=== PATIENT | male | born 1985 | race American Indian/Alaskan Native ===

== ENCOUNTER 2017-10-18 22:14 | Inpatient (IN) | payer OTHER ==
[2017-10-18] MEDS ORDERED: NORMODYNE IV ONE (23:03)
[2017-10-18 23:16] LABS: Basophils % (Auto) 0.5 % (0.0-1.8); Eosinophils # (Auto) 0.2 K/mm3 (0.0-0.4); Eosinophils % (Auto) 2.1 % (0.0-4.3); Hematocrit 46.2 % (35.5-45.6); Hemoglobin 15.7 gm/dl (11.8-15.2); Lymphocytes # (Auto) 1.8 K/mm3 (1.2-5.4); Lymphocytes % (Auto) 17.8 % (13.4-35.0); Mean Corpuscular HGB Conc 34 % (32-34); Mean Corpuscular Hemoglobin 29 pg (28-32); Mean Corpuscular Volume 87 fl (84-94); Monocytes # (Auto) 0.6 K/mm3 (0.0-0.8); Monocytes % (Auto) 5.5 % (0.0-7.3); Platelet Count 172 K/mm3 (140-440); Red Blood Count 5.33 M/mm3 (3.65-5.03); Red Cell Distribution Width 14.7 % (13.2-15.2)
[2017-10-18 23:28] LABS: INR 0.85 (0.87-1.13)
[2017-10-18 23:29] LABS: Partial Thromboplastin Time 32.9 Sec. (24.2-36.6)
[2017-10-18] MEDS ORDERED: SUBLIMAZE IV ONE (23:37)
--- NOTE | 2017-10-18 23:38 | Emergency Department Report ---
ED General Adult HPI - General Chief complaint: Chest Pain Stated complaint: CHEST PAIN,HEADACHE,RIGHT LEG NUMBNESS Time Seen by Provider: 10/18/17 23:27 Source: patient, RN notes reviewed Mode of arrival: Ambulatory Limitations: No Limitations - History of Present Illness Initial comments: This is a 32-year-old male. He is previously unknown to this provider. He can' t recall the name of primary care doctor. He believes he has a history of hypertension, and reports that he takes hydralazine, 25 mg every 8 hours, and Norvasc, 10 mg daily. He reports compliance with his medications. He presents to the ER with multiple complaints. His first complaint is chest pain. It is in the anterior right and left chest. It moves back and forth. History of present for weeks. It does not radiate to the back, arms or neck. There is no vomiting or diaphoresis or shortness of breath. The patient next complains of intermittent mass protruding from his supraumbilical area which is been going on and off for the past few weeks. It is currently resolved, and does not radiate anywhere, and has no exacerbating or relieving factors. The next and final complaint is right medial distal tibial numbness, which comes and goes, does not radiate proximally, and is described as a sensation of "it feels numb, but I can't feel it." To me, the patient denies headache. -: Gradual, week(s) Location: head, abdomen, right, lower extremity Radiation: non-radiation Quality: aching Consistency: intermittent Improves with: none Worsens with: none Associated Symptoms: chest pain, headaches, other (see history of present illness). denies: confusion, cough, diaphoresis, fever/chills, loss of appetite , malaise, nausea/vomiting, rash, seizure, shortness of breath, syncope, weakness - Related Data Home Medications Medication Instructions Recorded Confirmed Last Taken amLODIPine [Norvasc] 10 mg PO DAILY 06/07/14 10/19/17 06/07/14 08:00 Coreg 25 mg PO BID 10/19/17 10/19/17 Unknown hydrALAZINE 25 mg PO TID 10/19/17 10/19/17 Unknown Allergies Allergy/AdvReac Type Severity Reaction Status Date / Time No Known Allergies Allergy Unverified 06/07/14 12:03 ED Review of Systems ROS: Stated complaint: CHEST PAIN,HEADACHE,RIGHT LEG NUMBNESS Other details as noted in HPI Comment: All other systems reviewed and negative ED Past Medical Hx - Past Medical History Previous Medical History?: Yes Hx Hypertension: Yes - Social History Smoking Status: Current Every Day Smoker - Medications Home Medications: Home Medications Medication Instructions Recorded Confirmed Last Taken Type amLODIPine [Norvasc] 10 mg PO DAILY 06/07/14 10/19/17 06/07/14 08:00 History Coreg 25 mg PO BID 10/19/17 10/19/17 Unknown History hydrALAZINE 25 mg PO TID 10/19/17 10/19/17 Unknown History ED Physical Exam - General Limitations: No Limitations General appearance: alert, in no apparent distress, obese - Head Head exam: Present: atraumatic, normocephalic - Eye Eye exam: Present: normal appearance, EOMI. Absent: nystagmus - ENT ENT exam: Present: normal exam, normal orophraynx, mucous membranes moist, normal external ear exam - Neck Neck exam: Present: normal inspection, full ROM. Absent: tenderness, meningismus - Respiratory Respiratory exam: Present: normal lung sounds bilaterally. Absent: respiratory distress - Cardiovascular Cardiovascular Exam: Present: regular rate, normal rhythm, normal heart sounds. Absent: systolic murmur, diastolic murmur, rubs, gallop - GI/Abdominal GI/Abdominal exam: Present: soft, normal bowel sounds. Absent: distended, tenderness, guarding, rebound, rigid, pulsatile mass, hernia - Rectal Rectal exam: Present: deferred - Extremities Exam Extremities exam: Present: normal inspection, full ROM, normal capillary refill. Absent: pedal edema, joint swelling, calf tenderness - Back Exam Back exam: Present: normal inspection, full ROM. Absent: tenderness, CVA tenderness (R), paraspinal tenderness, vertebral tenderness - Neurological Exam Neurological exam: Present: alert, oriented X3, CN II-XII intact, normal gait, other (Extraocular movements intact. Tongue midline. No facial droop. Facial sensation intact to light touch in the V1, V2, V3 distribution bilaterally. 5 and 5 strength in 4 extremities.. Sensation is intact to light touch in 4 extremities.). Absent: motor sensory deficit - Psychiatric Psychiatric exam: Present: normal affect, normal mood - Skin Skin exam: Present: warm, dry, intact, normal color. Absent: rash ED Course Vital Signs 10/18/17 10/19/17 10/19/17 22:49 00:00 00:06 Temperature 99.1 F Pulse Rate 98 H 82 Respiratory 20 18 Rate Blood Pressure 211/140 197/144 O2 Sat by Pulse 92 100 93 Oximetry 10/19/17 10/19/17 10/19/17 00:16 00:30 00:46 Temperature Pulse Rate Respiratory Rate Blood Pressure 208/134 208/134 215/150 O2 Sat by Pulse 91 97 96 Oximetry 10/19/17 10/19/17 10/19/17 01:00 01:16 01:30 Temperature Pulse Rate Respiratory Rate Blood Pressure 215/150 233/157 233/157 O2 Sat by Pulse 98 98 97 Oximetry 10/19/17 10/19/17 10/19/17 01:46 02:00 02:14 Temperature Pulse Rate 83 83 Respiratory 19 Rate Blood Pressure 213/137 204/135 213/137 O2 Sat by Pulse 97 97 Oximetry 10/19/17 10/19/17 10/19/17 02:29 02:31 02:45 Temperature Pulse Rate 86 85 87 Respiratory 16 19 15 Rate Blood Pressure 204/135 193/125 193/125 O2 Sat by Pulse 94 96 98 Oximetry 10/19/17 10/19/17 10/19/17 03:00 03:15 03:30 Temperature Pulse Rate 83 82 85 Respiratory 19 17 19 Rate Blood Pressure 185/131 204/135 191/125 O2 Sat by Pulse 98 98 96 Oximetry 10/19/17 03:55 Temperature Pulse Rate 83 Respiratory Rate Blood Pressure 193/125 O2 Sat by Pulse Oximetry - Reevaluation(s) Reevaluation #1: 10/19/17 05:44 Patient resting comfortably. Blood pressure improved, although still elevated. Care transferred to the oncoming ER physician, Dr. Audi Mckeon, to follow-up on repeat CT scan of the chest, abdomen, pelvis. Assuming no dissection is noted, would admit patient to the hospital for blood pressure control and acute coronary syndrome risk stratification. If CT scan demonstrates aortic disease, with transfer to a hospital that has cardiothoracic surgery capability. ED Medical Decision Making - Lab Data Result diagrams: 10/18/17 23:02 10/18/17 23:02 Vital Signs 10/18/17 10/19/17 22:49 00:00 Temperature 99.1 F Pulse Rate 98 H 82 Respiratory 20 Rate Blood Pressure 211/140 197/144 O2 Sat by Pulse 92 Oximetry Lab Results 10/18/17 10/18/17 10/18/17 Range/Units 23:02 23:02 23:02 WBC 10.3 (4.5-11.0) K/mm3 RBC 5.33 H (3.65-5.03) M/mm3 Hgb 15.7 H (11.8-15.2) gm/dl Hct 46.2 H (35.5-45.6) % MCV 87 (84-94) fl MCH 29 (28-32) pg MCHC 34 (32-34) % RDW 14.7 (13.2-15.2) % Plt Count 172 (140-440) K/mm3 Lymph % (Auto) 17.8 (13.4-35.0) % Bleckley % (Auto) 5.5 (0.0-7.3) % Eos % (Auto) 2.1 (0.0-4.3) % Baso % (Auto) 0.5 (0.0-1.8) % Lymph # 1.8 (1.2-5.4) K/mm3 Bleckley # 0.6 (0.0-0.8) K/mm3 Eos # 0.2 (0.0-0.4) K/mm3 Baso # 0.0 (0.0-0.1) K/mm3 Seg Neutrophils % 74.1 H (40.0-70.0) % Seg Neutrophils # 7.6 (1.8-7.7) K/mm3 PT 12.0 L (12.2-14.9) Sec. INR 0.85 L (0.87-1.13) APTT 32.9 (24.2-36.6) Sec. Sodium 141 (137-145) mmol/L Potassium 2.9 L* (3.6-5.0) mmol/L Chloride 97.5 L (98-107) mmol/L Carbon Dioxide 31 H (22-30) mmol/L Anion Gap 15 mmol/L BUN 15 (9-20) mg/dL Creatinine 1.0 (0.8-1.5) mg/dL Estimated GFR > 60 ml/min BUN/Creatinine Ratio 15 % Glucose 109 H (75-100) mg/dL Calcium 8.6 (8.4-10.2) mg/dL Troponin T < 0.010 (0.00-0.029) ng/mL - EKG Data -: EKG Interpreted by Me EKG shows normal: sinus rhythm - EKG Data 10/19/17 03:35 EKG #1: Normal sinus, 87 beats per minute, normal axis, QTC prolonged nonspecific T- wave abnormalities, abnormal EKG, not a stemi, EKG #2, sinus, 78 bpm, normal axis, no STEMI, T-wave inversions 1, aVL, V5 and V6 - Radiology Data Radiology results: report reviewed, image reviewed eport Referring Physician: ANNA HURD Patient Name: NESTOR DOTY Date of : 1985 Sex: Male Report Date: 2017-10-19 Report Status: Finalized Findings [facility] [address] [place] [address] Cat Scan Report Signed Patient: NESTOR DOTY JR MR#: [id number] : 1985 Acct:[id number] Age/Sex: 32 / M ADM Date: 10/18/17 Loc: ED Attending Dr: Ordering Physician: ANNA HURD MD Date of Service: 10/18/17 Procedure(s): CT head/brain wo con Accession Number(s): [id number] cc: ANNA HURD MD FINAL REPORT EXAM: CT HEAD/BRAIN WO CON HISTORY: aorta Protocol HTN,Headache,foot numb COMPARISON: None available. TECHNIQUE: Axial images obtained skull base through vertex. FINDINGS: No acute intracranial hemorrhage, midline shift or pathologic extra axial fluid collection. Ventricles and cisterns are normal in size and configuration for the patient's age. Rodriguez-white differentiation preserved. Calvarium grossly intact. Small retention cyst or polyp at the floor the left maxillary sinus. Mild mucosal thickening the paranasal sinuses. Opacification bilateral mastoid air cells and tympanic cavities. Prominence of the nasopharyngeal adenoids which may be reactive given the patient's age. Tortuous course of the intracranial arterial vessels. Slight increased attenuation of the vessels diffusely. This may relate to patient's state of hydration. Recent administration of IV contrast could have a similar appearance. There is mild calcified plaque scattered along arterial vessels. This is somewhat atypical for patient age. IMPRESSION: No grossly acute intracranial abnormality. Tortuous course of the intracranial arterial vessels. Slight increased attenuation of the vessels diffusely. This may relate to patient's state of hydration. Recent administration of IV contrast could have a similar appearance. There is mild calcified plaque scattered along arterial vessels. This is somewhat atypical for patient age. Transcribed By: LMKiley Dictated By: DELANEY ALVAREZ MD Electronically Authenticated By: DELANEY ALVAREZ MD CT scan of the chest: No acute pulmonary embolus, dissection not excluded secondary to suboptimal contrast injection Signed Date/Time: 10/19/1736 DD/ TD/TT: 10/19/1736 - Medical Decision Making Differential diagnosis, including but not limited to: Intracranial hemorrhage, stroke, aortic dissection, aortic aneurysm, hypertensive urgency/emergency, transient ischemic attack, peripheral neuropathy Assessment and plan: 32-year-old male who is hypertensive, with atypical chest pain for a few weeks, has no pulmonary embolus or DVT risk factors, is low risk by well's criteria, GCS of 15, with an NIH score of 0. Troponin negative, however EKG abnormal with nonspecific T-wave changes. Patient's neurologic complaints appears to be distal, and is also likely peripheral neuropathy. However, given his complaint of chest pain, abdominal discomfort, and hypertension, CT angiogram is ordered to exclude aortic dissection. The initial interpretation is limited secondary to suboptimal contrast opacification. I doubt aortic disease given equal pulses in the upper and lower extremities, he scattered all this is currently consult with the overnight radiologist to determine if the patient can receive an additional contrast bolus, and how best to time the study. Critical care attestation.: If time is entered above; I have spent that time in minutes in the direct care of this critically ill patient, excluding procedure time. ED Disposition Condition: Stable Referrals: ANNA JARAMILLO MD [Primary Care Provider] - 3-5 Days
[2017-10-18] MEDS ORDERED: NACL 0.9% 500 ML 500 ML IV SCH (23:45)
[2017-10-18 23:54] LABS: BUN/Creatinine Ratio 15; Blood Urea Nitrogen 15 mg/dL (9-20); Calcium 8.6 mg/dL (8.4-10.2); Hemolysis Index 7
--- NOTE | 2017-10-19 00:43 | Cat Scan Report ---
FINAL REPORT EXAM: CT HEAD/BRAIN WO CON HISTORY: aorta Protocol HTN,Headache,foot numb COMPARISON: None available. TECHNIQUE: Axial images obtained skull base through vertex. FINDINGS: No acute intracranial hemorrhage, midline shift or pathologic extra axial fluid collection. Ventricles and cisterns are normal in size and configuration for the patient's age. Rodriguez-white differentiation preserved. Calvarium grossly intact. Small retention cyst or polyp at the floor the left maxillary sinus. Mild mucosal thickening the paranasal sinuses. Opacification bilateral mastoid air cells and tympanic cavities. Prominence of the nasopharyngeal adenoids which may be reactive given the patient's age. Tortuous course of the intracranial arterial vessels. Slight increased attenuation of the vessels diffusely. This may relate to patient's state of hydration. Recent administration of IV contrast could have a similar appearance. There is mild calcified plaque scattered along arterial vessels. This is somewhat atypical for patient age. IMPRESSION: No grossly acute intracranial abnormality. Tortuous course of the intracranial arterial vessels. Slight increased attenuation of the vessels diffusely. This may relate to patient's state of hydration. Recent administration of IV contrast could have a similar appearance. There is mild calcified plaque scattered along arterial vessels. This is somewhat atypical for patient age.
[2017-10-19] MEDS ORDERED: MAG-OX PO STA (00:44)
[2017-10-19] MEDS ORDERED: K-DUR PO ONE (00:44)
[2017-10-19] MEDS ORDERED: NORMODYNE IV ONE (00:45)
[2017-10-19] MEDS: KCL 10MEQ/100ML 10 MEQ/100 ML BAG IV SCH ×4 (02:15→04:02)
--- NOTE | 2017-10-19 03:04 | Cat Scan Report ---
FINAL REPORT EXAM: CT ANGIO CHEST HISTORY: aorta Protocol HTN,Headache,foot numb COMPARISON: None available. TECHNIQUE: Contiguous axial images were obtained. Additional sagittal and coronal reformatted images were obtained. Administration of IV contrast given per institution protocol. Images submitted for interpretation. FINDINGS: Heart normal in size. The ascending thoracic aorta measures 4 centimeters in diameter, borderline dilated. Descending thoracic aorta measures 3 centimeters also borderline dilated. Thoracic aorta is not optimally opacified for evaluation of intimal flap. No large intimal flap or evidence of rupture. No pulmonary embolus. No pathologically enlarged intrathoracic or axillary lymph nodes. Mild linear atelectasis at the lung bases. No large consolidation or pleural effusion. Fatty infiltration of the liver. Liver is enlarged measuring 26 centimeters. Bony thorax is grossly intact. Tiny hiatal hernia. IMPRESSION: No pulmonary embolus. Borderline dilatation of the thoracic aorta. Suboptimal timing of contrast bolus for evaluation of thoracic aortic dissection. No large intimal flap or rupture. Subtle intimal flap may be obscured due to timing of contrast bolus. No focal consolidation or effusion. Mild atelectasis.
[2017-10-19] MEDS ORDERED: APRESOLINE PO ONE (03:49)
[2017-10-19] MEDS ORDERED: NACL 0.9% 500 ML 500 ML IV ONE (03:54)
--- NOTE | 2017-10-19 04:05 | Cat Scan Report ---
FINAL REPORT EXAM: CT ANGIO ABDOMEN PELVIS HISTORY: aorta Protocol HTN,Headache,foot numb COMPARISON: None available. TECHNIQUE: Contiguous axial images were obtained. Additional sagittal and coronal reformatted images were obtained. Administration of IV contrast given per institution protocol. Images submitted for interpretation. Max intensity projection images. FINDINGS: Mild atelectasis at the lung bases. Liver is enlarged. Diffuse fatty infiltration of the liver. Liver measures 27 centimeters. No calcified gallstones or biliary dilatation. Spleen, pancreas, adrenal glands are grossly unremarkable. No solid renal lesion or hydronephrosis. Aorta and IVC are normal in caliber. Infrarenal aorta measures 1.9 centimeters in diameter. Abdominal aorta is suboptimally opacified. No large intimal flap or dissection. Major arterial branches of the aorta remain patent. Evaluation also somewhat limited by patient body habitus. Urinary bladder and prostate gland are grossly unremarkable. No free fluid or lymphadenopathy. The appendix is normal in caliber. Large and small bowel loops normal in caliber. Small umbilical hernia containing fat only. Tiny hiatal hernia. Bony pelvis and lumbar spine are grossly intact. IMPRESSION: Abdominal aorta is normal in caliber. Major branches of the aorta are patent. Suboptimal opacification aorta for evaluation dissection. No large intimal flap or evidence of rupture. No focal inflammatory changes of the abdomen and pelvis.
[2017-10-19] MEDS ORDERED: NORVASC ONE (06:04)
[2017-10-19] MEDS ORDERED: NORVASC PO ONE (06:12)
--- NOTE | 2017-10-19 06:31 | Cat Scan Report ---
FINAL REPORT EXAM: CT ANGIO CHEST HISTORY: cp ? dissection TECHNIQUE: A CT angiogram was obtained of the thorax following the intravenous injection of iodinated contrast. Additional axial imaging was obtained of the abdomen and pelvis also. Oral contrast was not administered. MIP sagittal coronal reconstructions were reviewed. FINDINGS: There is no evidence of thoracoabdominal aortic dissection or aneurysm. The thoracic aorta is normal in size. The heart size is normal. There is no evidence of vascular congestion. There is no evidence of pulmonary embolus. The lungs are clear. Pleural fluid is not seen. There is no evidence of adenopathy. At the thoracic inlet the thyroid gland appears normal. The skeletal structures are well-maintained. In the abdomen and pelvis the liver, gallbladder, spleen, pancreas and adrenal glands appear normal. The kidneys enhance normally. There is no evidence of hydronephrosis. The bowel loops are normal in caliber and course. There is a small umbilical hernia containing omental fat. The appendix appears normal. There is no evidence of free fluid or adenopathy. In the pelvis the prostate gland and bladder appear normal. The skeletal structures are well-maintained. IMPRESSION: No evidence of thoracoabdominal aneurysm or aortic dissection. No evidence of pulmonary embolus or acute process in the chest. No acute process in the abdomen and pelvis. Small umbilical hernia containing omental fat
--- NOTE | 2017-10-19 07:48 | History and Physical Report ---
History of Present Illness Date of examination: 10/19/17 Date of admission: 10/19/17 Chief complaint: Chest pain, headache and lower extremity numbness intermittent for the last 1 week worse since yesterday History of present illness: Very pleasant morbidly obese 32-year-old male patient with significant history of hypertension noncompliant with medications presented to the emergency room with chest pain headache and right leg numbness Patient has been not feeling well for the last 1-2 weeks but the symptoms became worse since yesterday Denies nausea or vomiting or abdominal pain He shouldn't was noted to have hypertensive urgency with systolic blood pressures more than 200, minimal improvement with initial treatment Patient rates his chest pain between 4-6/10 intermittent radiating across the chest, has mild shortness of breath, no diaphoresis Patient never had similar symptoms in the past Patient had CTA chest; negative for PE and aortic dissection First set of cardiac enzymes negative Had severe hypokalemia which was replaced pending repeat labs At the time of my evaluation patient has very mild chest pain Past History Past Medical History: hypertension Past Surgical History: No surgical history Social history: lives with family, smoking (quit smoking 3 months ago), full code. denies: alcohol abuse, prescription drug abuse Family history: diabetes, hypertension Medications and Allergies Allergies Allergy/AdvReac Type Severity Reaction Status Date / Time No Known Allergies Allergy Unverified 06/07/14 12:03 Home Medications Medication Instructions Recorded Confirmed Last Taken Type amLODIPine [Norvasc] 10 mg PO DAILY 06/07/14 10/19/17 06/07/14 08:00 History Coreg 25 mg PO BID 10/19/17 10/19/17 Unknown History hydrALAZINE 25 mg PO TID 10/19/17 10/19/17 Unknown History Active Meds: Active Medications Sodium Chloride (Nacl 0.9% 500 Ml) 500 mls @ 50 mls/hr IV DIRECT MELISSA Last Admin: 10/19/17 01:00 Dose: 50 mls/hr Review of Systems Constitutional: no weight loss, no weight gain, no fever, no chills Ears, nose, mouth and throat: no nasal congestion, no nasal discharge Cardiovascular: chest pain, shortness of breath, high blood pressure, no orthopnea, no palpitations Respiratory: shortness of breath, no cough Gastrointestinal: no abdominal pain, no nausea, no vomiting Genitourinary Male: no dysuria, no hematuria Musculoskeletal: no myalgias, no arthritis Integumentary: no rash, no lesions Neurological: numbness, no seizures, no syncope Psychiatric: no anxiety, no depression Endocrine: no cold intolerance, no heat intolerance, no polyuria, no nocturia Hematologic/Lymphatic: no easy bruising, no easy bleeding Allergic/Immunologic: no urticaria, no allergic rhinitis Exam - Constitutional Vitals: Temp Pulse Resp BP Pulse Ox 99.1 F 89 25 H 176/117 93 10/18/17 22:49 10/19/17 07:01 10/19/17 07:01 10/19/17 07:01 10/19/17 07:01 General appearance: Present: no acute distress, well-nourished, obese (morbidly obese) - EENT Eyes: Present: PERRL, EOM intact - Neck Neck: Present: supple, normal ROM - Respiratory Respiratory effort: normal Respiratory: bilateral: diminished, negative: rales, rhonchi, wheezing - Cardiovascular Rhythm: regular Heart Sounds: Present: S1 & S2 - Extremities Extremities: no ischemia, No edema - Abdominal General gastrointestinal: Present: soft, non-tender, non-distended, normal bowel sounds - Integumentary Integumentary: Present: clear, warm - Musculoskeletal Musculoskeletal: strength equal bilaterally - Psychiatric Psychiatric: appropriate mood/affect, cooperative - Neurologic Neurologic: CNII-XII intact, moves all extremities Results - Labs CBC & Chem 7: 10/18/17 23:02 10/18/17 23:02 Labs: Abnormal lab results 10/18/17 10/18/17 10/18/17 Range/Units 23:02 23:02 23:02 RBC 5.33 H (3.65-5.03) M/mm3 Hgb 15.7 H (11.8-15.2) gm/dl Hct 46.2 H (35.5-45.6) % Seg Neutrophils % 74.1 H (40.0-70.0) % PT 12.0 L (12.2-14.9) Sec. INR 0.85 L (0.87-1.13) Potassium 2.9 L* (3.6-5.0) mmol/L Chloride 97.5 L (98-107) mmol/L Carbon Dioxide 31 H (22-30) mmol/L Glucose 109 H (75-100) mg/dL Assessment and Plan - Patient Problems (1) Hypertensive urgency Current Visit: Yes Status: Acute Plan to address problem: Secondary to medical noncompliance Management with beta blockers, marciano inhibitors, hydralazine, if no improvement, consider Cardene drip Low-sodium diet (2) Chest pain Current Visit: Yes Status: Acute Qualifiers: Chest pain type: precordial pain Qualified Code(s): R07.2 - Precordial pain Plan to address problem: Probably secondary to hypertensive cardiomyopathy, however in view of risk factors rule out acute coronary syndrome Serial cardiac enzymes, echocardiogram, serial EKG, stress test to rule out reversible ischemia Cardiology consultation if needed Management aspirin and beta blockers and marciano inhibitors nitrates statins and Lovenox As well as pain medications (3) Hypertensive cardiomyopathy Current Visit: Yes Status: Acute Plan to address problem: Optimize hypertensive medications, follow echocardiogram to rule out cardiomyopathy (4) Hypokalemia Current Visit: Yes Status: Acute Plan to address problem: Replace per protocol and monitor levels, check magnesium (5) Morbid obesity with BMI of 40.0-44.9, adult Current Visit: Yes Status: Acute Plan to address problem: Counseling done advised diet modification and exercise as tolerated and weight reduction when medically stable Also advised outpatient bariatric surgical evaluation for weight reduction program medically stable (6) Medical non-compliance Current Visit: Yes Status: Acute Plan to address problem: Counseling and patient strongly advised to comply with medications and diet and follow-up visits Patient verbalized understanding (7) Tobacco use Current Visit: Yes Status: Chronic Plan to address problem: Smoking cessation counseling and advised nicotine patch as needed (8) DVT prophylaxis Current Visit: Yes Status: Acute Plan to address problem: Lovenox
[2017-10-19] MEDS ORDERED: APRESOLINE IV PRN (07:55)
[2017-10-19] MEDS ORDERED: NON-FORMULARY (Hydralazine 25 MG) PO SCH (08:00)
[2017-10-19] MEDS ORDERED: APRESOLINE IV ONE (08:12)
[2017-10-19] MEDS ORDERED: MORPHINE IV PRN (08:14)
[2017-10-19] MEDS ORDERED: NITROSTAT SL PRN (08:14)
[2017-10-19] MEDS: PEPCID IV SCH ×2 (09:51→22:23)
[2017-10-19] MEDS: LOVENOX SUB-Q SCH (09:52)
[2017-10-19] MEDS: COREG PO SCH ×2 (09:53→22:22)
[2017-10-19] MEDS: ASPIRIN PO SCH (09:53)
[2017-10-19] MEDS: ZESTRIL PO SCH (09:54)
[2017-10-19] MEDS ORDERED: NON-FORMULARY (Coreg 25 MG) PO SCH (10:00)
[2017-10-19 10:11] LABS: BUN/Creatinine Ratio 12; Blood Urea Nitrogen 12 mg/dL (9-20); Calcium 8.3 mg/dL (8.4-10.2); Hemolysis Index 16
--- NOTE | 2017-10-19 10:24 | Cat Scan Report ---
FINAL REPORT EXAM: CT ANGIO ABDOMEN PELVIS HISTORY: cp ? dissection TECHNIQUE: CTA of the abdomen and pelvis with IV contrast. Coronal and sagittal reconstructed imaging provided. PRIORS: CT abdomen pelvis October 18, 2017. FINDINGS: ABDOMEN: No abdominal aortic aneurysm or dissection. IVC is unremarkable. No periaortic or retroperitoneal mass or adenopathy. Portal vein is patent. SMV is patent. Single right and left renal arteries identified. Celiac and superior mesenteric arteries are unremarkable. Fatty liver. No suspicious enhancement or lesions. Liver measures 27 cm. Gallbladder, stomach, spleen, pancreas, and adrenals are unremarkable. Kidneys: Symmetrical cortical enhancement. No hydronephrosis. [id number] stool is present throughout the colon. No wall thickening or inflammatory changes. Appendix is normal. Terminal ilium is unremarkable. Small bowel loops are unremarkable. No obstructive pattern. No free air. No free fluid. Fat containing umbilical hernia. No strangulation. PELVIS: Bladder is unremarkable. There is no pelvic mass or adenopathy. Inguinal regions are unremarkable. Bones: No suspicious osseous lesions on this limited examination of the skeleton. Metastatic disease better evaluated with bone scan. IMPRESSION: Fatty enlarged liver. No distinct lesions. No aortic aneurysm or dissection.
[2017-10-19] MEDS ORDERED: LEXISCAN IV ONE ×2 (11:36→12:00)
[2017-10-19] MEDS ORDERED: APRESOLINE PO SCH ×2 (14:00)
[2017-10-19] MEDS: APRESOLINE PO SCH ×2 (16:53→22:23)
--- NOTE | 2017-10-19 20:06 | Treadmill Report ---
The resting perfusion images revealed slightly diminished radioisotope activity in the inferior wall, probably due to increased liver uptake. On post-Lexiscan perfusion images revealed homogeneous radioisotope activity throughout the myocardium. There is no evidence of transient ischemic dilatation. Gated scan revealed a mildly depressed ejection fraction of 44%. IMPRESSION: This test is negative for ischemia. JOB# [id number] NIRAJ/WILMAN
[2017-10-20] MEDS: APRESOLINE PO SCH ×3 (06:02→22:24)
[2017-10-20 06:04] LABS: Basophils % (Auto) 0.3 % (0.0-1.8); Eosinophils # (Auto) 0.4 K/mm3 (0.0-0.4); Eosinophils % (Auto) 3.9 % (0.0-4.3); Hematocrit 41.9 % (35.5-45.6); Hemoglobin 14.4 gm/dl (11.8-15.2); Lymphocytes # (Auto) 1.9 K/mm3 (1.2-5.4); Lymphocytes % (Auto) 20.5 % (13.4-35.0); Mean Corpuscular HGB Conc 34 % (32-34); Mean Corpuscular Hemoglobin 29 pg (28-32); Mean Corpuscular Volume 86 fl (84-94); Monocytes # (Auto) 0.7 K/mm3 (0.0-0.8); Monocytes % (Auto) 7.4 % (0.0-7.3); Platelet Count 159 K/mm3 (140-440); Red Blood Count 4.89 M/mm3 (3.65-5.03); Red Cell Distribution Width 14.8 % (13.2-15.2)
[2017-10-20 06:29] LABS: BUN/Creatinine Ratio 12; Blood Urea Nitrogen 11 mg/dL (9-20); Calcium 8.7 mg/dL (8.4-10.2); HDL Cholesterol 33 mg/dL (40-59); Hemolysis Index 18; LDL Cholesterol,Direct 112 mg/dL (50-130)
[2017-10-20] MEDS ORDERED: K-DUR PO NR ×2 (07:49→10:30)
[2017-10-20] MEDS: NORVASC PO SCH (10:00)
[2017-10-20] MEDS: PEPCID IV SCH (10:00)
[2017-10-20] MEDS: ZESTRIL PO SCH (10:00)
[2017-10-20] MEDS: COREG PO SCH ×2 (10:00→22:24)
[2017-10-20] MEDS: ASPIRIN PO SCH (10:00)
[2017-10-20] MEDS: LOVENOX SUB-Q SCH (10:19)
--- NOTE | 2017-10-20 15:59 | Progress Note ---
Assessment and Plan - Patient Problems (1) Hypertensive urgency Current Visit: Yes Status: Acute Plan to address problem: Mild improvement, patient's blood pressure remained uncontrolled, on multiple antihypertensives Adjusted multiple times, closely monitor (2) Chest pain Current Visit: Yes Status: Acute Qualifiers: Chest pain type: precordial pain Qualified Code(s): R07.2 - Precordial pain Plan to address problem: Atypical, probably secondary to gastroesophageal reflux disease, stress test negative (3) Hypertensive cardiomyopathy Current Visit: Yes Status: Acute Plan to address problem: Supportive care, continue current antihypertensive, optimize medications (4) Hypokalemia Current Visit: Yes Status: Acute Plan to address problem: Replenish per protocol and monitor level (5) Morbid obesity with BMI of 40.0-44.9, adult Current Visit: Yes Status: Acute Plan to address problem: Counseling done and advised diet modification and exercise as tolerated and weight reduction When medically stable (6) Medical non-compliance Current Visit: Yes Status: Acute Plan to address problem: Counseling then advised compliance of medications (7) Tobacco use Current Visit: Yes Status: Chronic Plan to address problem: Counseling and advised smoking cessation (8) DVT prophylaxis Current Visit: Yes Status: Acute Plan to address problem: Lovenox DC planning to case management, possible discharge home tomorrow if stable History Interval history: Patient seen and examined medical records reviewed Patient had negative stress test, continues to have uncontrolled blood pressures Complaints of headache and generalized body pains And leg numbness, without weakness Alert awake Oriented 3 Vital signs reviewed Hospitalist Physical - Constitutional Vitals: Temp Pulse Resp BP Pulse Ox 97.9 F 69 18 167/117 92 10/20/17 12:30 10/20/17 12:30 10/20/17 12:30 10/20/17 12:30 10/20/17 12:30 General appearance: Present: no acute distress, well-nourished, obese (morbidly obese) - EENT Eyes: Present: PERRL, EOM intact - Neck Neck: Present: supple, normal ROM - Respiratory Respiratory effort: normal Respiratory: bilateral: diminished, negative: rales, rhonchi, wheezing - Cardiovascular Rhythm: regular Heart Sounds: Present: S1 & S2 - Extremities Extremities: no ischemia, No edema Peripheral Pulses: within normal limits - Abdominal General gastrointestinal: soft, non-tender, non-distended, normal bowel sounds - Integumentary Integumentary: Present: clear, warm - Psychiatric Psychiatric: appropriate mood/affect, cooperative - Neurologic Neurologic: CNII-XII intact, moves all extremities Results - Labs CBC & Chem 7: 10/20/17 05:18 10/20/17 05:18 Labs: Laboratory Last Values WBC 9.4 K/mm3 (4.5-11.0) 10/20/17 05:18 RBC 4.89 M/mm3 (3.65-5.03) 10/20/17 05:18 Hgb 14.4 gm/dl (11.8-15.2) 10/20/17 05:18 Hct 41.9 % (35.5-45.6) 10/20/17 05:18 MCV 86 fl (84-94) 10/20/17 05:18 MCH 29 pg (28-32) 10/20/17 05:18 MCHC 34 % (32-34) 10/20/17 05:18 RDW 14.8 % (13.2-15.2) 10/20/17 05:18 Plt Count 159 K/mm3 (140-440) 10/20/17 05:18 Lymph % (Auto) 20.5 % (13.4-35.0) 10/20/17 05:18 [place] % (Auto) 7.4 % (0.0-7.3) H 10/20/17 05:18 Eos % (Auto) 3.9 % (0.0-4.3) 10/20/17 05:18 Baso % (Auto) 0.3 % (0.0-1.8) 10/20/17 05:18 Lymph # 1.9 K/mm3 (1.2-5.4) 10/20/17 05:18 [place] # 0.7 K/mm3 (0.0-0.8) 10/20/17 05:18 Eos # 0.4 K/mm3 (0.0-0.4) 10/20/17 05:18 Baso # 0.0 K/mm3 (0.0-0.1) 10/20/17 05:18 Seg Neutrophils % 67.9 % (40.0-70.0) 10/20/17 05:18 Seg Neutrophils # 6.4 K/mm3 (1.8-7.7) 10/20/17 05:18 PT 12.0 Sec. (12.2-14.9) L 10/18/17 23:02 INR 0.85 (0.87-1.13) L 10/18/17 23:02 APTT 32.9 Sec. (24.2-36.6) 10/18/17 23:02 Sodium 141 mmol/L (137-145) 10/20/17 05:18 Potassium 3.2 mmol/L (3.6-5.0) L 10/20/17 05:18 Chloride 100.5 mmol/L (98-107) 10/20/17 05:18 Carbon Dioxide 28 mmol/L (22-30) 10/20/17 05:18 Anion Gap 16 mmol/L 10/20/17 05:18 BUN 11 mg/dL (9-20) 10/20/17 05:18 Creatinine 0.9 mg/dL (0.8-1.5) 10/20/17 05:18 Estimated GFR > 60 ml/min 10/20/17 05:18 BUN/Creatinine Ratio 12 % 10/20/17 05:18 Glucose 100 mg/dL (75-100) 10/20/17 05:18 Calcium 8.7 mg/dL (8.4-10.2) 10/20/17 05:18 Magnesium 1.80 mg/dL (1.7-2.3) 10/19/17 00:44 Troponin T < 0.010 ng/mL (0.00-0.029) 10/19/17 20:21 Triglycerides 85 mg/dL (2-149) 10/20/17 05:18 Cholesterol 152 mg/dL (50-199) 10/20/17 05:18 LDL Cholesterol Direct 112 mg/dL (50-130) 10/20/17 05:18 HDL Cholesterol 33 mg/dL (40-59) L 10/20/17 05:18 Cholesterol/HDL Ratio 4.60 % 10/20/17 05:18
[2017-10-20] MEDS: PEPCID PO SCH ×2 (16:16→22:19)
[2017-10-20] MEDS ORDERED: CATAPRES PO ONE (17:00)
[2017-10-20] MEDS: NEURONTIN PO SCH (22:19)
[2017-10-20] MEDS: CATAPRES PO SCH (22:23)
[2017-10-21] MEDS: APRESOLINE PO SCH ×2 (06:20→13:58)
[2017-10-21] MEDS: NEURONTIN PO SCH ×2 (06:21→14:12)
[2017-10-21] MEDS ORDERED: K-DUR PO NR (08:00)
[2017-10-21] MEDS: ASPIRIN PO SCH (11:37)
[2017-10-21] MEDS: ZESTRIL PO SCH (11:37)
[2017-10-21] MEDS: COREG PO SCH (11:37)
[2017-10-21] MEDS: PEPCID PO SCH (11:37)
[2017-10-21] MEDS: NORVASC PO SCH (11:38)
[2017-10-21] MEDS: CATAPRES PO SCH (11:39)
[2017-10-21] MEDS: LOVENOX SUB-Q SCH (11:45)
--- NOTE | 2017-10-21 15:13 | Discharge Summary ---
Providers - Providers Date of Admission: 10/19/17 07:45 Date of discharge: 10/21/17 Attending physician: LEONARDA MORENO Primary care physician: ANNA JARAMILLO Hospitalization Condition: Fair Disposition: DC-01 TO HOME OR SELFCARE - Discharge Diagnoses (1) Hypertensive urgency Status: Acute (2) Chest pain Status: Acute Qualifiers: Chest pain type: precordial pain Qualified Code(s): R07.2 - Precordial pain (3) Hypertensive cardiomyopathy Status: Acute (4) Hypokalemia Status: Acute (5) Morbid obesity with BMI of 40.0-44.9, adult Status: Acute (6) Medical non-compliance Status: Acute (7) Tobacco use Status: Chronic (8) DVT prophylaxis Status: Acute Core Measure Documentation - Palliative Care Palliative Care/ Comfort Measures: Not Applicable - Core Measures Any of the following diagnoses?: none Exam - Constitutional Vitals: Temp Pulse Resp BP Pulse Ox 98.3 F 77 22 152/119 95 10/21/17 13:18 10/21/17 13:18 10/21/17 13:18 10/21/17 13:58 10/21/17 13:18 General appearance: Present: no acute distress, well-nourished, obese - EENT Eyes: Present: PERRL, EOM intact - Neck Neck: Present: supple, normal ROM - Respiratory Respiratory effort: normal Respiratory: bilateral: diminished, negative: rales, rhonchi, wheezing - Cardiovascular Rhythm: regular Heart Sounds: Present: S1 & S2 - Extremities Extremities: no ischemia, No edema - Abdominal General gastrointestinal: Present: soft, non-tender, non-distended, normal bowel sounds - Integumentary Integumentary: Present: clear, warm - Musculoskeletal Musculoskeletal: strength equal bilaterally - Psychiatric Psychiatric: appropriate mood/affect, cooperative - Neurologic Neurologic: CNII-XII intact, moves all extremities Plan Activity: no restrictions Diet: low salt Special Instructions: smoking cessation Additional Instructions: smoking cessation. Chronic hypertension on multiple anti-hypertensives, need to see primary care physician in 2-3 days for close monitoring of blood pressure and adjustment of medications. Diet modification and exercise as tolerated and weight reduction and medically stable. Advised to seek private neurologist if lower extremity numbness does not improve Follow up with: ANNA JARAMILLO MD [Primary Care Provider] - 3-5 Days TITI ABREU MD [Staff Physician] - 7 Days Prescriptions: amLODIPine [Norvasc] 10 mg PO DAILY #30 tablet cloNIDine [Catapres] 0.1 mg PO Q12HR #60 tablet Coreg 25 mg PO BID #60 Gabapentin [Neurontin] 100 mg PO Q8HR #90 capsule Hydralazine HCl 50 mg PO TID #90 tablet Lisinopril [Zestril TAB] 40 mg PO QDAY #30 tablet Nicotine [Habitrol] 21 mg TD DAILY #30 patch
[2017-10-21 15:26] VITALS: BP 127/95
== END 2017-10-21 18:07 | disposition home or self-care (01) | DRG 313 ==
LOC: ED 22:14 → 4A 10-19 07:45 → 3A 10-21 09:05
PROVIDERS: ADMIT Internal Medicine; ATTEND Internal Medicine
DX: R07.89 Other chest pain (principal); Z68.41 Body mass index [BMI] 40.0-44.9, adult; I16.0 Hypertensive urgency; I11.9 Hypertensive heart disease without heart failure; E87.6 Hypokalemia; E66.01 Morbid (severe) obesity due to excess calories; Z91.14 Patient's other noncompliance with medication regimen; Z72.0 Tobacco use; Z79.899 Other long term (current) drug therapy; Z82.49 Family history of ischemic heart disease and other diseases of the circulatory system; Z83.3 Family history of diabetes mellitus; Z71.3 Dietary counseling and surveillance; Z71.6 Tobacco abuse counseling
CPT/HCPCS: 36415; 70450; 71275; 74174; 78452; 80048; 80061; 83735; 84132; 84484; 85025; 85610; 85730; 93005; 93010; 93017; 93306; 96361; 96372; 96374; 96375; 96376; 99406; A9502; J0360; J1650; J2785; J3010; J3480; J7040; Q9967

== ENCOUNTER 2019-04-23 05:58 | Inpatient (IN) | payer SELFPAY ==
[2019-04-23 06:41] LABS: Basophils # (Auto) 0.2 K/mm3 (0.0-0.1); Basophils % (Auto) 1.6 % (0.0-1.8); Eosinophils # (Auto) 0.1 K/mm3 (0.0-0.4); Eosinophils % (Auto) 1.4 % (0.0-4.3); Hematocrit 47.3 % (35.5-45.6); Hemoglobin 16.3 gm/dl (11.8-15.2); Lymphocytes # (Auto) 1.8 K/mm3 (1.2-5.4); Lymphocytes % (Auto) 17.4 % (13.4-35.0); Mean Corpuscular HGB Conc 35 % (32-34); Mean Corpuscular Volume 86 fl (84-94); Monocytes # (Auto) 0.6 K/mm3 (0.0-0.8); Monocytes % (Auto) 5.6 % (0.0-7.3); Platelet Count 172 K/mm3 (140-440); Red Cell Distribution Width 15.2 % (13.2-15.2)
--- NOTE | 2019-04-23 06:49 | XRay Report ---
CHEST 1 VIEW INDICATION / CLINICAL INFORMATION: Chest Pain. COMPARISON: None available. FINDINGS: SUPPORT DEVICES: None. HEART / MEDIASTINUM: The cardiac silhouette is stable, prominent but accentuated by technique. LUNGS / PLEURA: No significant pulmonary or pleural abnormality. No pneumothorax. ADDITIONAL FINDINGS: No significant additional findings. IMPRESSION: 1. No acute findings. Signer Name: Kristi Kaba MD Signed: 04/23/2019 6:44 AM Workstation Name: [id number]
[2019-04-23 07:01] LABS: BUN/Creatinine Ratio 14; Blood Urea Nitrogen 14 mg/dL (9-20); Calcium 8.9 mg/dL (8.4-10.2); Hemolysis Index 41
[2019-04-23] MEDS ORDERED: cloNIDine 0.2 MG TAB PO ONE (07:20)
[2019-04-23] MEDS ORDERED: LEVALBUTEROL 0.63 MG/3 ML NEBU IH ONE (07:21)
[2019-04-23] MEDS ORDERED: NITROGLYCERIN 2% OINT 1 GM TP ONE (07:24)
[2019-04-23] MEDS ORDERED: POTASSIUM CHLORIDE ER 20 MEQ TAB PO ONE (07:24)
[2019-04-23] MEDS ORDERED: ONDANSETRON 4 MG/2 ML INJ IV ONE (07:25)
[2019-04-23] MEDS ORDERED: fentaNYL 100 MCG/2 ML INJ IV ONE (07:25)
[2019-04-23] MEDS ORDERED: ASPIRIN 325 MG TAB PO ONE (07:25)
--- NOTE | 2019-04-23 07:33 | Emergency Department Report ---
HPI - General Chief Complaint: Chest Pain Time Seen by Provider: 04/23/19 07:12 - [facility] HPI: Room 6 The patient is a 34-year-old male presenting with a chief complaint of chest pain and URI symptoms. The patient states 5 days ago he developed a cough sore throat and left ear drainage but his symptoms resolved. Patient states he then developed tightness in his chest and neck associated with shortness of breath and diaphoresis. Patient denies nausea or vomiting. The patient states he checks his blood pressure and saw his systolic was in the 200s. Patient states he is not taking any medication for his blood pressure. Certainly if he's had a fever ED Past Medical Hx - Past Medical History Previous Medical History?: Yes Hx Hypertension: Yes - Surgical History Past Surgical History?: No - Family History Family history: no significant - Social History Smoking Status: Current Every Day Smoker (1/2 pack per day) Substance Use Type: Alcohol (moderate), Marijuana - Medications Home Medications: Home Medications Medication Instructions Recorded Confirmed Last Taken Type Coreg 25 mg PO BID #60 10/21/17 Unknown Rx Gabapentin [Neurontin] 100 mg PO Q8HR #90 capsule 10/21/17 Unknown Rx Hydralazine HCl 50 mg PO TID #90 tablet 10/21/17 Unknown Rx Lisinopril [Zestril TAB] 40 mg PO QDAY #30 tablet 10/21/17 Unknown Rx amLODIPine [Norvasc] 10 mg PO DAILY #30 tablet 10/21/17 Unknown Rx cloNIDine [Catapres] 0.1 mg PO Q12HR #60 tablet 10/21/17 Unknown Rx ED Review of Systems ROS: Stated complaint: GONZALEZ/CP/HBP Other details as noted in HPI Constitutional: diaphoresis, fever (?) Eyes: denies: eye pain ENT: ear pain Respiratory: cough, shortness of breath Cardiovascular: chest pain Endocrine: no symptoms reported Gastrointestinal: denies: nausea, vomiting Genitourinary: denies: dysuria Musculoskeletal: denies: back pain Physical Exam - Physical Exam Vital Signs: Vital Signs 04/23/19 04/23/19 06:07 06:25 Temperature 98.9 F 98.3 F Pulse Rate 99 H 87 Respiratory 18 16 Rate Blood Pressure 237/143 Blood Pressure 195/127 [Left] O2 Sat by Pulse 91 91 Oximetry Physical Exam: GENERAL: The patient is well-developed well-nourished male lying on stretcher not appearing to be in acute distress. [] HEENT: Normocephalic. Atraumatic. Extraocular motions are intact. Patient has moist mucous membranes. NECK: Supple. Trachea midline CHEST/LUNGS: Occasional faint expiratory wheeze. There is no respiratory distress noted. HEART/CARDIOVASCULAR: Regular. There is no tachycardia. There is no gallop rub or murmur. ABDOMEN: Abdomen is soft, nontender. Patient has normal bowel sounds. There is no abdominal distention. SKIN: There is no rash. There is no diaphoresis. NEURO: The patient is awake, alert, and oriented. The patient is cooperative. The patient has normal speech MUSCULOSKELETAL: There is no evidence of acute injury. ED Course Vital Signs 04/23/19 04/23/19 06:07 06:25 Temperature 98.9 F 98.3 F Pulse Rate 99 H 87 Respiratory 18 16 Rate Blood Pressure 237/143 Blood Pressure 195/127 [Left] O2 Sat by Pulse 91 91 Oximetry ED Medical Decision Making - Lab Data Result diagrams: 04/23/19 06:25 04/23/19 06:25 - EKG Data -: EKG Interpreted by Me EKG shows normal: sinus rhythm Rate: normal - EKG Data When compared to previous EKG there are: previous EKG unavailable Interpretation: nonspecific ST-T wave milo (T-wave inversions in leads 1 and aVL) - Radiology Data Radiology results: report reviewed (chest x-ray), image reviewed (chest x-ray) interpreted by me: Chest x-ray-no focal infiltrates, no pneumothorax [facility] [address] [place] [address] XRay Report Signed Patient: NESTOR DOTY JR MR#: [id number] : 1985 Acct:[id number] Age/Sex: 34 / M ADM Date: 04/23/19 Loc: ED Attending Dr: Ordering Physician: ED MD ED Date of Service: 04/23/19 Procedure(s): XR chest 1V ap Accession Number(s): [id number] cc: ED MD ED Fluoro Time In Minutes: CHEST 1 VIEW INDICATION / CLINICAL INFORMATION: Chest Pain. COMPARISON: None available. FINDINGS: SUPPORT DEVICES: None. HEART / MEDIASTINUM: The cardiac s ilhouette is stable, prominent but accentuated by technique. LUNGS / PLEURA: No significant pulmonary or pleural abnormality. No pneumothorax. ADDITIONAL FINDINGS: No significant additional findings. IMPRESSION: 1. No acute findings. Signer Name: Kristi Kaba MD Signed: 04/23/2019 6:44 AM Workstation Name: [id number] Transcribed By: [facility] Dictated By: Kristi Kaba MD Electronically Authenticated By: Kristi Kaba MD Signed Date/Time: 04/23/19643 DD/ 2 TD/TT: - Differential Diagnosis ACS, pneumonia, influenza, myocarditis, hypertensive urgency Critical care attestation.: If time is entered above; I have spent that time in minutes in the direct care of this critically ill patient, excluding procedure time. ED Disposition Clinical Impression: Hypertensive urgency, Chest pain Disposition: DC-09 OP ADMIT IP TO THIS HOSP Is pt being admited?: Yes Does the pt Need Aspirin: Yes Condition: Fair Instructions: Chest Pain (ED) Time of Disposition: 07:37 (hospitalist paged)
[2019-04-23] MEDS ORDERED: ONDANSETRON 4 MG/2 ML INJ IV PRN (08:52)
--- NOTE | 2019-04-23 08:52 | History and Physical Report ---
History of Present Illness Date of examination: 04/23/19 Date of admission: 04/23/19 Chief complaint: cp History of present illness: Accelerated hypertension. Patient reports medical noncompliance and has been without his blood pressure medications for 2 years. Resume home medications of clonidine, hydralazine, Zestril, Norvasc and Coreg. Chest pain. Patient with negative stress test October 2017. Cardiology consultation for recommendations regarding ischemic evaluation. Hypertensive cardiomyopathy. Echocardiogram October 2017 revealed moderate concentric left ventricular hypertrophy with EF of 50-55%. Left ventricular chamber size mildly dilated. 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 Morbid obesity. Patient will be counseled on diet modification and exercise. BECCA/OHS. Patient likely has sleep apnea and will need outpatient sleep study. Medical noncompliance. Patient has been counseled on importance of medications. Tobacco use. Patient will be counseled on smoking cessation. Medications and Allergies Allergies Allergy/AdvReac Type Severity Reaction Status Date / Time No Known Allergies Allergy Verified 04/23/19 06:07 Home Medications Medication Instructions Recorded Confirmed Last Taken Type Coreg 25 mg PO BID #60 10/21/17 Unknown Rx Gabapentin [Neurontin] 100 mg PO Q8HR #90 capsule 10/21/17 Unknown Rx Hydralazine HCl 50 mg PO TID #90 tablet 10/21/17 Unknown Rx Lisinopril [Zestril TAB] 40 mg PO QDAY #30 tablet 10/21/17 Unknown Rx amLODIPine [Norvasc] 10 mg PO DAILY #30 tablet 10/21/17 Unknown Rx cloNIDine [Catapres] 0.1 mg PO Q12HR #60 tablet 10/21/17 Unknown Rx Exam - Constitutional Vitals: Temp Pulse Resp BP Pulse Ox 98.3 F 77 16 194/115 94 04/23/19 06:25 04/23/19 08:31 04/23/19 08:31 04/23/19 08:31 04/23/19 08:31 Results - Labs CBC & Chem 7: 04/23/19 06:25 04/23/19 06:25 Labs: Laboratory Last Values WBC 10.1 K/mm3 (4.5-11.0) 04/23/19 06:25 RBC 5.50 M/mm3 (3.65-5.03) H 04/23/19 06:25 Hgb 16.3 gm/dl (11.8-15.2) H 04/23/19 06:25 Hct 47.3 % (35.5-45.6) H 04/23/19 06:25 MCV 86 fl (84-94) 04/23/19 06:25 MCH 30 pg (28-32) 04/23/19 06:25 MCHC 35 % (32-34) H 04/23/19 06:25 RDW 15.2 % (13.2-15.2) 04/23/19 06:25 Plt Count 172 K/mm3 (140-440) 04/23/19 06:25 Lymph % (Auto) 17.4 % (13.4-35.0) 04/23/19 06:25 [place] % (Auto) 5.6 % (0.0-7.3) 04/23/19 06:25 Eos % (Auto) 1.4 % (0.0-4.3) 04/23/19 06:25 Baso % (Auto) 1.6 % (0.0-1.8) 04/23/19 06:25 Lymph # 1.8 K/mm3 (1.2-5.4) 04/23/19 06:25 [place] # 0.6 K/mm3 (0.0-0.8) 04/23/19 06:25 Eos # 0.1 K/mm3 (0.0-0.4) 04/23/19 06:25 Baso # 0.2 K/mm3 (0.0-0.1) H 04/23/19 06:25 Seg Neutrophils % 74.0 % (40.0-70.0) H 04/23/19 06:25 Seg Neutrophils # 7.5 K/mm3 (1.8-7.7) 04/23/19 06:25 Sodium 142 mmol/L (137-145) 04/23/19 06:25 Potassium 2.9 mmol/L (3.6-5.0) L* 04/23/19 06:25 Chloride 98.1 mmol/L (98-107) 04/23/19 06:25 Carbon Dioxide 30 mmol/L (22-30) 04/23/19 06:25 Anion Gap 17 mmol/L 04/23/19 06:25 BUN 14 mg/dL (9-20) 04/23/19 06:25 Creatinine 1.0 mg/dL (0.8-1.5) 04/23/19 06:25 Estimated GFR > 60 ml/min 04/23/19 06:25 BUN/Creatinine Ratio 14 % 04/23/19 06:25 Glucose 115 mg/dL (75-100) H 04/23/19 06:25 Calcium 8.9 mg/dL (8.4-10.2) 04/23/19 06:25 Troponin T < 0.010 ng/mL (0.00-0.029) 04/23/19 06:25
[2019-04-23] MEDS: hydrALAZINE 25 MG TAB PO SCH ×3 (09:41→21:00)
[2019-04-23] MEDS ORDERED: hydrALAZINE 25 MG TAB ONE (09:41)
[2019-04-23] MEDS ORDERED: GABAPENTIN 100 MG CAP ONE (09:41)
[2019-04-23] MEDS: GABAPENTIN 100 MG CAP PO SCH ×3 (09:41→22:08)
[2019-04-23] MEDS ORDERED: hydrALAZINE 20 MG/1 ML INJ IV PRN (09:53)
[2019-04-23] MEDS ORDERED: NON-FORMULARY EACH (Coreg 25 MG) PO SCH (10:00)
[2019-04-23] MEDS ORDERED: LISINOPRIL 40 MG TAB PO SCH (10:00)
[2019-04-23 10:08] LABS: BUN/Creatinine Ratio 15; Blood Urea Nitrogen 15 mg/dL (9-20); Calcium 8.9 mg/dL (8.4-10.2); Hemolysis Index 10
[2019-04-23 10:17] LABS: Basophils % (Auto) 0.4 % (0.0-1.8); Eosinophils # (Auto) 0.2 K/mm3 (0.0-0.4); Eosinophils % (Auto) 1.7 % (0.0-4.3); Hematocrit 47.7 % (35.5-45.6); Hemoglobin 15.9 gm/dl (11.8-15.2); Lymphocytes % (Auto) 21.2 % (13.4-35.0); Mean Corpuscular HGB Conc 33 % (32-34); Mean Corpuscular Volume 87 fl (84-94); Monocytes # (Auto) 0.7 K/mm3 (0.0-0.8); Monocytes % (Auto) 7.7 % (0.0-7.3); Platelet Count 159 K/mm3 (140-440); Red Blood Count 5.47 M/mm3 (3.65-5.03); Red Cell Distribution Width 14.9 % (13.2-15.2)
[2019-04-23] MEDS: amLODIPine 10 MG TAB PO SCH (11:21)
[2019-04-23] MEDS: carvediloL 25 MG TAB PO SCH ×2 (11:22→22:09)
[2019-04-23] MEDS: cloNIDine 0.1 MG TAB PO SCH ×2 (11:22→22:09)
[2019-04-23] MEDS: ENOXAPARIN 40 MG/0.4 ML INJ SUB-Q SCH (11:23)
[2019-04-23] MEDS ORDERED: NON-FORMULARY EACH (Hydralazine Hcl [Hydralazine Hcl] 50 MG) PO SCH (14:00)
--- NOTE | 2019-04-23 14:06 | Consultation ---
<ROGELIO SKINNER - Last Filed: 04/23/19 14:24> History of Present Illness Consult date: 04/23/19 Requesting physician: KAILA SHARMA Consult reason: chest pain History of present illness: Mr. Smalls is a 34 y/o male who presented to the ED with chest pain that began three days ago. He has a history of hypertension, BECCA, tobacco use, cardiomyopathy and medical noncompliance and is unknown to our practice. He describes the pain as constant, sharp and occurring across his upper chest. He also endorses accompanying neck and shoulder pain as well as a persistent cough productive of yellowish sputum. On admission, he was extremely hypertensive, and admits to being noncompliant with his outpatient antihypertensive regimen. CXR, EKG and troponins unremarkable. An echocardiogram in 2018 found an EF of 50 to 55 percent, moderate concentric LVH, mildly dilated LV chamber size and an akinetic apical lateral wall segment. An exercise stress test in 2018 was negative for ischemia. Past History Past Medical History: hypertension, other (BECCA, noncompliance, cardiomyopathy ) Medications and Allergies Allergies Allergy/AdvReac Type Severity Reaction Status Date / Time sulfamethoxazole Allergy Hives Verified 04/23/19 08:55 [From Bactrim] trimethoprim [From Bactrim] Allergy Hives Verified 04/23/19 08:55 Home Medications Medication Instructions Recorded Confirmed Last Taken Type Coreg 25 mg PO BID #60 10/21/17 04/23/19 04/23/19 13:54 Rx Gabapentin [Neurontin] 100 mg PO Q8HR #90 capsule 10/21/17 04/23/19 04/23/19 13:54 Rx Hydralazine HCl 50 mg PO TID #90 tablet 10/21/17 04/23/19 04/23/19 13:54 Rx Lisinopril [Zestril TAB] 40 mg PO QDAY #30 tablet 10/21/17 04/23/19 04/23/19 13:55 Rx amLODIPine [Norvasc] 10 mg PO DAILY #30 tablet 10/21/17 04/23/19 04/23/19 13:55 Rx cloNIDine [Catapres] 0.1 mg PO Q12HR #60 tablet 10/21/17 04/23/19 04/23/19 13:55 Rx Active Meds: Active Medications Acetaminophen (Tylenol) 650 mg PO Q4H PRN PRN Reason: Pain MILD(1-3)/Fever >100.5/GONZALEZ Amlodipine Besylate (Norvasc) 10 mg PO DAILY [facility] Last Admin: 04/23/19 11:21 Dose: 10 mg Documented by: Carvedilol (Coreg) 25 mg PO BID [facility] Last Admin: 04/23/19 11:22 Dose: 25 mg Documented by: Clonidine HCl (Catapres) 0.1 mg PO Q12HR [facility] Last Admin: 04/23/19 11:22 Dose: 0.1 mg Documented by: Enoxaparin Sodium (Lovenox) 40 mg SUB-Q QDAY [facility] Last Admin: 04/23/19 11:23 Dose: 40 mg Documented by: Gabapentin (Neurontin) 100 mg PO Q8HR [facility] Last Admin: 04/23/19 13:31 Dose: 100 mg Documented by: Hydralazine HCl (Apresoline) 50 mg PO TID [facility] Last Admin: 04/23/19 13:30 Dose: 50 mg Documented by: Hydralazine HCl (Apresoline) 20 mg IV Q4HR PRN PRN Reason: Blood Pressure Lisinopril (Zestril) 40 mg PO QDAY [facility] Last Admin: 04/23/19 11:22 Dose: 40 mg Documented by: Ondansetron HCl (Zofran) 4 mg IV Q8H PRN PRN Reason: Nausea And Vomiting Sodium Chloride (Sodium Chloride Flush Syringe 10 Ml) 10 ml IV BID [facility] Last Admin: 04/23/19 11:23 Dose: 10 ml Documented by: Sodium Chloride (Sodium Chloride Flush Syringe 10 Ml) 10 ml IV PRN PRN PRN Reason: LINE FLUSH Sodium Chloride (Sodium Chloride Flush Syringe 10 Ml) 10 ml IV PRN PRN PRN Reason: LINE FLUSH Review of Systems All systems: negative Cardiovascular: chest pain Physical Examination Last Vital Signs Temp 98.4 F 04/23/19 12:52 Pulse 93 H 04/23/19 13:30 Resp 20 04/23/19 12:52 BP 146/98 04/23/19 13:30 Pulse Ox 94 04/23/19 12:52 General appearance: no acute distress HEENT: Positive: PERRL Neck: Positive: neck supple Cardiac: Positive: Reg Rate and Rhythm Lungs: Positive: Normal Exam Neuro: Positive: Grossly Intact Abdomen: Positive: Unremarkable Male genitourinary: Positive: deferred Skin: Positive: Clear Musculoskeletal: Normal Range of Motion Extremities: Present: normal Results 04/23/19 09:24 04/23/19 09:24 CBC 04/23/19 04/23/19 Range/Units 06:25 09:24 WBC 10.1 9.5 (4.5-11.0) K/mm3 RBC 5.50 H 5.47 H (3.65-5.03) M/mm3 Hgb 16.3 H 15.9 H (11.8-15.2) gm/dl Hct 47.3 H 47.7 H (35.5-45.6) % Plt Count 172 159 (140-440) K/mm3 Lymph # 1.8 2.0 (1.2-5.4) K/mm3 [place] # 0.6 0.7 (0.0-0.8) K/mm3 Eos # 0.1 0.2 (0.0-0.4) K/mm3 Baso # 0.2 H 0.0 (0.0-0.1) K/mm3 Comprehensive Metabolic Panel 04/23/19 04/23/19 Range/Units 06:25 09:24 Sodium 142 139 (137-145) mmol/L Potassium 2.9 L* 3.1 L (3.6-5.0) mmol/L Chloride 98.1 95.9 L (98-107) mmol/L Carbon Dioxide 30 29 (22-30) mmol/L BUN 14 15 (9-20) mg/dL Creatinine 1.0 1.0 (0.8-1.5) mg/dL Glucose 115 H 122 H (75-100) mg/dL Calcium 8.9 8.9 (8.4-10.2) mg/dL - Imaging and Cardiology Stress echo: report reviewed (10/2017: negative for ischemia) Echo: report reviewed (10/2017: EF of 50 to 55 percent, moderate concentric LVH, mildly dilated LV chamber size and an akinetic apical lateral wall segment.) - EKG Interpretation EKG: sinus rhythm EKG interpretations - Telemetry EKG Rhythm: Sinus Rhythm Chamber hypertrophy or enlargement: left ventricular hypertro Assessment and Plan Mr. Smalls is a 34 y/o male admitted with chest pain, which appears to be non- cardiac in nature and likely r/t persistent coughing and uncontrolled hypertension. Continue home antihypertensives. The patient has been seen in conjunction with Dr. Painting, who agrees with the assessment and plan. - Patient Problems (1) Atypical chest pain Current Visit: Yes Status: Acute (2) Hypertensive urgency Current Visit: Yes Status: Acute (3) Hypokalemia Current Visit: No Status: Acute (4) Cough productive of yellow sputum Current Visit: Yes Status: Acute (5) Cardiomyopathy Current Visit: Yes Status: Chronic (6) Medical non-compliance Current Visit: No Status: Chronic (7) Morbid obesity with BMI of 40.0-44.9, adult Current Visit: No Status: Chronic (8) Tobacco use Current Visit: No Status: Chronic <MARY ANNE PAINTING R - Last Filed: 04/23/19 14:41> History of Present Illness History of present illness: pt is a difficult historian. cp appears non cardiac and likely musc/skel in nature as it is aggravated by coughing and certain body positions when turning in bed. he had a non ischemic stress echo 10/2017 and nl lv ef on tte 10/2017 ecg now show no acute changes and trops are neg main issue appears to be bp mgt and correction of hypokalemia Medications and Allergies Active Meds: Active Medications Acetaminophen (Tylenol) 650 mg PO Q4H PRN PRN Reason: Pain MILD(1-3)/Fever >100.5/GONZALEZ Amlodipine Besylate (Norvasc) 10 mg PO DAILY [facility] Last Admin: 04/23/19 11:21 Dose: 10 mg Documented by: Carvedilol (Coreg) 25 mg PO BID [facility] Last Admin: 04/23/19 11:22 Dose: 25 mg Documented by: Clonidine HCl (Catapres) 0.1 mg PO Q12HR [facility] Last Admin: 04/23/19 11:22 Dose: 0.1 mg Documented by: Enoxaparin Sodium (Lovenox) 40 mg SUB-Q QDAY [facility] Last Admin: 04/23/19 11:23 Dose: 40 mg Documented by: Gabapentin (Neurontin) 100 mg PO Q8HR [facility] Last Admin: 04/23/19 13:31 Dose: 100 mg Documented by: Hydralazine HCl (Apresoline) 50 mg PO TID [facility] Last Admin: 04/23/19 13:30 Dose: 50 mg Documented by: Hydralazine HCl (Apresoline) 20 mg IV Q4HR PRN PRN Reason: Blood Pressure Lisinopril (Zestril) 40 mg PO QDAY [facility] Last Admin: 04/23/19 11:22 Dose: 40 mg Documented by: Ondansetron HCl (Zofran) 4 mg IV Q8H PRN PRN Reason: Nausea And Vomiting Sodium Chloride (Sodium Chloride Flush Syringe 10 Ml) 10 ml IV BID [facility] Last Admin: 04/23/19 11:23 Dose: 10 ml Documented by: Sodium Chloride (Sodium Chloride Flush Syringe 10 Ml) 10 ml IV PRN PRN PRN Reason: LINE FLUSH Sodium Chloride (Sodium Chloride Flush Syringe 10 Ml) 10 ml IV PRN PRN PRN Reason: LINE FLUSH Physical Examination Vital Signs Temp Pulse Resp BP Pulse Ox 98.9 F 99 H 18 237/143 91 04/23/19 06:07 04/23/19 06:07 04/23/19 06:07 04/23/19 06:07 04/23/19 06:07 Results 04/23/19 09:24 04/23/19 09:24 CBC 04/23/19 04/23/19 Range/Units 06:25 09:24 WBC 10.1 9.5 (4.5-11.0) K/mm3 RBC 5.50 H 5.47 H (3.65-5.03) M/mm3 Hgb 16.3 H 15.9 H (11.8-15.2) gm/dl Hct 47.3 H 47.7 H (35.5-45.6) % Plt Count 172 159 (140-440) K/mm3 Lymph # 1.8 2.0 (1.2-5.4) K/mm3 [place] # 0.6 0.7 (0.0-0.8) K/mm3 Eos # 0.1 0.2 (0.0-0.4) K/mm3 Baso # 0.2 H 0.0 (0.0-0.1) K/mm3 Comprehensive Metabolic Panel 04/23/19 04/23/19 Range/Units 06:25 09:24 Sodium 142 139 (137-145) mmol/L Potassium 2.9 L* 3.1 L (3.6-5.0) mmol/L Chloride 98.1 95.9 L (98-107) mmol/L Carbon Dioxide 30 29 (22-30) mmol/L BUN 14 15 (9-20) mg/dL Creatinine 1.0 1.0 (0.8-1.5) mg/dL Glucose 115 H 122 H (75-100) mg/dL Calcium 8.9 8.9 (8.4-10.2) mg/dL
--- NOTE | 2019-04-23 14:43 | Event Note ---
Date: 04/23/19 pt is a difficult historian. cp appears non cardiac and likely musc/skel in nature as it is aggravated by coughing and certain body positions when turning in bed. he had a non ischemic stress echo 10/2017 and nl lv ef on tte 10/2017 ecg now show no acute changes and trops are neg main issue appears to be bp mgt and correction of hypokalemia
[2019-04-23] MEDS ORDERED: MORPHINE 4 MG/1 ML INJ IV PRN (18:00)
[2019-04-24] MEDS: GABAPENTIN 100 MG CAP PO SCH ×3 (06:17→22:04)
[2019-04-24 07:01] LABS: Basophils % (Auto) 0.2 % (0.0-1.8); Eosinophils % (Auto) 0.4 % (0.0-4.3); Hematocrit 44.7 % (35.5-45.6); Hemoglobin 14.7 gm/dl (11.8-15.2); Lymphocytes # (Auto) 1.7 K/mm3 (1.2-5.4); Mean Corpuscular HGB Conc 33 % (32-34); Mean Corpuscular Volume 88 fl (84-94); Monocytes # (Auto) 0.8 K/mm3 (0.0-0.8); Monocytes % (Auto) 6.6 % (0.0-7.3); Platelet Count 170 K/mm3 (140-440); Red Cell Distribution Width 15.1 % (13.2-15.2)
[2019-04-24 07:29] LABS: Calcium 8.4 mg/dL (8.4-10.2)
[2019-04-24] MEDS ORDERED: POTASSIUM CHLORIDE ER 20 MEQ TAB PO NR (07:44)
[2019-04-24] MEDS: ENOXAPARIN 40 MG/0.4 ML INJ SUB-Q SCH (10:01)
[2019-04-24] MEDS: carvediloL 25 MG TAB PO SCH ×2 (10:02→22:04)
[2019-04-24] MEDS: cloNIDine 0.1 MG TAB PO SCH ×2 (10:02→22:04)
[2019-04-24] MEDS: amLODIPine 10 MG TAB PO SCH (10:03)
[2019-04-24] MEDS: SODIUM CHLORIDE 0.9% 1000 ML 1,000 ML IV SCH (10:05)
--- NOTE | 2019-04-24 11:12 | History and Physical Report ---
History of Present Illness Date of examination: 04/23/19 Date of admission: 04/23/19 07:40 Chief complaint: cp History of present illness: 34 y/o male with past medical history of hypertension, BECCA, tobacco use, cardiomyopathy and medical noncompliance who presented to the ED with chest pain that began three days [employer] ATTEND[employer]. He describes the pain as constant, sharp and occurring across his upper chest. He also reports accompanying neck and shoulder pain as well as a persistent cough productive of yellowish sputum. On admission, he was extremely hypertensive, and admits to being noncompliant with his outpatient antihypertensive regimen. Patient reports that he has not taken blood pressure medication for at least 2 years and was diagnosed with hypertension approximately 8 years ago. CXR, EKG and troponins unremarkable. Past History Past Medical History: hypertension, other (BECCA, noncompliance, cardiomyopathy ) Medications and Allergies Allergies Allergy/AdvReac Type Severity Reaction Status Date / Time sulfamethoxazole Allergy Hives Verified 04/23/19 08:55 [From Bactrim] trimethoprim [From Bactrim] Allergy Hives Verified 04/23/19 08:55 Home Medications Medication Instructions Recorded Confirmed Last Taken Type Coreg 25 mg PO BID #60 10/21/17 04/23/19 04/23/19 13:54 Rx Gabapentin [Neurontin] 100 mg PO Q8HR #90 capsule 10/21/17 04/23/19 04/23/19 13:54 Rx Hydralazine HCl 50 mg PO TID #90 tablet 10/21/17 04/23/19 04/23/19 13:54 Rx Lisinopril [Zestril TAB] 40 mg PO QDAY #30 tablet 10/21/17 04/23/19 04/23/19 13:55 Rx amLODIPine [Norvasc] 10 mg PO DAILY #30 tablet 10/21/17 04/23/19 04/23/19 13:55 Rx cloNIDine [Catapres] 0.1 mg PO Q12HR #60 tablet 10/21/17 04/23/19 04/23/19 13:55 Rx Active Meds: Active Medications Acetaminophen (Tylenol) 650 mg PO Q4H PRN PRN Reason: Pain MILD(1-3)/Fever >100.5/GONZALEZ Amlodipine Besylate (Norvasc) 10 mg PO DAILY [facility] Last Admin: 04/24/19 10:03 Dose: 10 mg Documented by: Carvedilol (Coreg) 25 mg PO BID [facility] Last Admin: 04/24/19 10:02 Dose: 25 mg Documented by: Clonidine HCl (Catapres) 0.1 mg PO Q12HR [facility] Last Admin: 04/24/19 10:02 Dose: 0.1 mg Documented by: Enoxaparin Sodium (Lovenox) 40 mg SUB-Q QDAY [facility] Last Admin: 04/24/19 10:01 Dose: 40 mg Documented by: Gabapentin (Neurontin) 100 mg PO Q8HR [facility] Last Admin: 04/24/19 06:17 Dose: 100 mg Documented by: Hydralazine HCl (Apresoline) 100 mg PO TID [facility] Sodium Chloride (Nacl 0.9% 1000 Ml) 1,000 mls @ 75 mls/hr IV DIRECT [facility] Last Admin: 04/24/19 10:05 Dose: 75 mls/hr Documented by: Morphine Sulfate (Morphine) 1 mg IV Q4H PRN PRN Reason: Pain , Severe (7-10) Ondansetron HCl (Zofran) 4 mg IV Q8H PRN PRN Reason: Nausea And Vomiting Sodium Chloride (Sodium Chloride Flush Syringe 10 Ml) 10 ml IV BID [facility] Last Admin: 04/24/19 10:04 Dose: 10 ml Documented by: Sodium Chloride (Sodium Chloride Flush Syringe 10 Ml) 10 ml IV PRN PRN PRN Reason: LINE FLUSH Review of Systems All systems: negative Exam - Constitutional Vitals: Temp Pulse Resp BP Pulse Ox 97.3 F L 68 21 147/92 99 04/24/19 07:46 04/24/19 10:03 04/24/19 08:25 04/24/19 10:03 04/24/19 08:25 General appearance: Present: no acute distress, well-nourished - EENT Eyes: Present: PERRL ENT: hearing intact, clear oral mucosa - Neck Neck: Present: supple, normal ROM - Respiratory Respiratory effort: normal Respiratory: bilateral: CTA - Cardiovascular Heart Sounds: Present: S1 & S2. Absent: rub, click - Extremities Extremities: pulses symmetrical, No edema Peripheral Pulses: within normal limits - Abdominal General gastrointestinal: Present: soft, non-tender, non-distended, normal bowel sounds Male genitourinary: Present: normal - Integumentary Integumentary: Present: clear, warm, dry - Musculoskeletal Musculoskeletal: gait normal, strength equal bilaterally - Psychiatric Psychiatric: appropriate mood/affect, intact judgment & insight - Neurologic Neurologic: CNII-XII intact, moves all extremities Results - Labs CBC & Chem 7: 04/24/19 06:35 04/24/19 06:35 Labs: Laboratory Last Values WBC 12.4 K/mm3 (4.5-11.0) H 04/24/19 06:35 RBC 5.10 M/mm3 (3.65-5.03) H 04/24/19 06:35 Hgb 14.7 gm/dl (11.8-15.2) 04/24/19 06:35 Hct 44.7 % (35.5-45.6) 04/24/19 06:35 MCV 88 fl (84-94) 04/24/19 06:35 MCH 29 pg (28-32) 04/24/19 06:35 MCHC 33 % (32-34) 04/24/19 06:35 RDW 15.1 % (13.2-15.2) 04/24/19 06:35 Plt Count 170 K/mm3 (140-440) 04/24/19 06:35 Lymph % (Auto) 14.0 % (13.4-35.0) 04/24/19 06:35 [place] % (Auto) 6.6 % (0.0-7.3) 04/24/19 06:35 Eos % (Auto) 0.4 % (0.0-4.3) 04/24/19 06:35 Baso % (Auto) 0.2 % (0.0-1.8) 04/24/19 06:35 Lymph # 1.7 K/mm3 (1.2-5.4) 04/24/19 06:35 [place] # 0.8 K/mm3 (0.0-0.8) 04/24/19 06:35 Eos # 0.0 K/mm3 (0.0-0.4) 04/24/19 06:35 Baso # 0.0 K/mm3 (0.0-0.1) 04/24/19 06:35 Seg Neutrophils % 78.8 % (40.0-70.0) H 04/24/19 06:35 Seg Neutrophils # 9.7 K/mm3 (1.8-7.7) H 04/24/19 06:35 Sodium 141 mmol/L (137-145) 04/24/19 06:35 Potassium 3.3 mmol/L (3.6-5.0) L 04/24/19 06:35 Chloride 99.3 mmol/L (98-107) 04/24/19 06:35 Carbon Dioxide 33 mmol/L (22-30) H 04/24/19 06:35 Anion Gap 12 mmol/L 04/24/19 06:35 BUN 25 mg/dL (9-20) H 04/24/19 06:35 Creatinine 2.3 mg/dL (0.8-1.5) H D 04/24/19 06:35 Estimated GFR 39 ml/min 04/24/19 06:35 BUN/Creatinine Ratio 11 % 04/24/19 06:35 Glucose 106 mg/dL (75-100) H 04/24/19 06:35 Calcium 8.4 mg/dL (8.4-10.2) 04/24/19 06:35 Troponin T < 0.010 ng/mL (0.00-0.029) 04/23/19 17:24 Influenza A (Rapid) Negative (Negative) 04/23/19 08:15 Influenza B (Rapid) Negative (Negative) 04/23/19 08:15 Assessment and Plan Assessment and plan: Accelerated hypertension. Patient reports medical noncompliance and has been without his blood pressure medications for 2 years. Resume home medications of clonidine, hydralazine, Zestril, Norvasc and Coreg. Chest pain. Patient with negative stress test October 2017. CXR, EKG and troponins unremarkable. An exercise stress test in 2018 was negative for ischemia. Cardiology consultation for recommendations regarding ischemic evaluation. Hypertensive cardiomyopathy. Echocardiogram October 2017 revealed moderate concentric left ventricular hypertrophy with EF of 50-55%. Left ventricular chamber size mildly dilated. 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 Morbid obesity. Patient will be counseled on diet modification and exercise. BECCA/OHS. Patient likely has sleep apnea and will need outpatient sleep study. Medical noncompliance. Patient has been counseled on importance of medications. Tobacco use. Patient will be counseled on smoking cessation.
--- NOTE | 2019-04-24 11:13 | Progress Note ---
Assessment and Plan Assessment and plan: Acute renal failure. Etiology may be secondary to vasomotor nephropathy/dehydration. Start IV fluid normal saline. Check renal ultrasound. Nephrology consultation. Accelerated hypertension. Patient reports medical noncompliance and has been without his blood pressure medications for 2 years. Resume home medications of clonidine, hydralazine, Zestril, Norvasc and Coreg. Chest pain. Patient with negative stress test October 2017. CXR, EKG and troponins unremarkable. An exercise stress test in 2018 was negative for ischemia. Defer to Cardiology regarding ischemic evaluation. Hypertensive cardiomyopathy. Echocardiogram October 2017 revealed moderate concentric left ventricular hypertrophy with EF of 50-55%. Left ventricular chamber size mildly dilated. 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 Morbid obesity. Patient will be counseled on diet modification and exercise. BECCA/OHS. Patient likely has sleep apnea and will need outpatient sleep study. Medical noncompliance. Patient has been counseled on importance of medications. Tobacco use. Patient will be counseled on smoking cessation. History Interval history: Patient denies chest pain currently. Hospitalist Physical - Constitutional Vitals: Temp Pulse Resp BP Pulse Ox 97.3 F L 68 21 147/92 99 04/24/19 07:46 04/24/19 10:03 04/24/19 08:25 04/24/19 10:03 04/24/19 08:25 General appearance: Present: no acute distress - EENT Eyes: Present: PERRL, EOM intact ENT: hearing intact, clear oral mucosa, dentition normal - Neck Neck: Present: supple, normal ROM - Respiratory Respiratory effort: normal Respiratory: bilateral: CTA - Cardiovascular Rhythm: regular Heart Sounds: Present: S1 & S2. Absent: gallop, rub - Extremities Extremities: no ischemia, No edema, Full ROM - Abdominal General gastrointestinal: soft, non-tender, non-distended, normal bowel sounds - Integumentary Integumentary: Present: clear, warm, dry - Neurologic Neurologic: CNII-XII intact, moves all extremities Results - Labs CBC & Chem 7: 04/24/19 06:35 04/24/19 06:35 Labs: Laboratory Last Values WBC 12.4 K/mm3 (4.5-11.0) H 04/24/19 06:35 RBC 5.10 M/mm3 (3.65-5.03) H 04/24/19 06:35 Hgb 14.7 gm/dl (11.8-15.2) 04/24/19 06:35 Hct 44.7 % (35.5-45.6) 04/24/19 06:35 MCV 88 fl (84-94) 04/24/19 06:35 MCH 29 pg (28-32) 04/24/19 06:35 MCHC 33 % (32-34) 04/24/19 06:35 RDW 15.1 % (13.2-15.2) 04/24/19 06:35 Plt Count 170 K/mm3 (140-440) 04/24/19 06:35 Lymph % (Auto) 14.0 % (13.4-35.0) 04/24/19 06:35 [place] % (Auto) 6.6 % (0.0-7.3) 04/24/19 06:35 Eos % (Auto) 0.4 % (0.0-4.3) 04/24/19 06:35 Baso % (Auto) 0.2 % (0.0-1.8) 04/24/19 06:35 Lymph # 1.7 K/mm3 (1.2-5.4) 04/24/19 06:35 [place] # 0.8 K/mm3 (0.0-0.8) 04/24/19 06:35 Eos # 0.0 K/mm3 (0.0-0.4) 04/24/19 06:35 Baso # 0.0 K/mm3 (0.0-0.1) 04/24/19 06:35 Seg Neutrophils % 78.8 % (40.0-70.0) H 04/24/19 06:35 Seg Neutrophils # 9.7 K/mm3 (1.8-7.7) H 04/24/19 06:35 Sodium 141 mmol/L (137-145) 04/24/19 06:35 Potassium 3.3 mmol/L (3.6-5.0) L 04/24/19 06:35 Chloride 99.3 mmol/L (98-107) 04/24/19 06:35 Carbon Dioxide 33 mmol/L (22-30) H 04/24/19 06:35 Anion Gap 12 mmol/L 04/24/19 06:35 BUN 25 mg/dL (9-20) H 04/24/19 06:35 Creatinine 2.3 mg/dL (0.8-1.5) H D 04/24/19 06:35 Estimated GFR 39 ml/min 04/24/19 06:35 BUN/Creatinine Ratio 11 % 04/24/19 06:35 Glucose 106 mg/dL (75-100) H 04/24/19 06:35 Calcium 8.4 mg/dL (8.4-10.2) 04/24/19 06:35 Troponin T < 0.010 ng/mL (0.00-0.029) 04/23/19 17:24 Influenza A (Rapid) Negative (Negative) 04/23/19 08:15 Influenza B (Rapid) Negative (Negative) 04/23/19 08:15 Active Medications - Current Medications Current Medications: Generic Name Dose Route Start Last Admin Trade Name Freq PRN Reason Stop Dose Admin Acetaminophen 650 mg 04/23/19 08:52 Tylenol PO Q4H PRN Pain MILD(1-3)/Fever >100.5/GONZALEZ Amlodipine Besylate 10 mg 04/23/19 10:00 04/24/19 10:03 Norvasc PO 10 mg DAILY [facility] Administration Carvedilol 25 mg 04/23/19 10:00 04/24/19 10:02 Coreg PO 25 mg BID [facility] Administration Clonidine HCl 0.1 mg 04/23/19 10:00 04/24/19 10:02 Catapres PO 0.1 mg Q12HR [facility] Administration Enoxaparin Sodium 40 mg 04/23/19 10:00 04/24/19 10:01 Lovenox SUB-Q 40 mg QDAY [facility] Administration Gabapentin 100 mg 04/23/19 09:00 04/24/19 06:17 Neurontin PO 100 mg Q8HR [facility] Administration Hydralazine HCl 100 mg 04/24/19 14:00 Apresoline PO TID [facility] Sodium Chloride 1,000 mls @ 75 mls/hr 04/24/19 08:00 04/24/19 10:05 Nacl 0.9% 1000 Ml IV 75 mls/hr DIRECT [facility] Administration Morphine Sulfate 1 mg 04/23/19 18:00 Morphine IV Q4H PRN Pain , Severe (7-10) Ondansetron HCl 4 mg 04/23/19 08:52 Zofran IV Q8H PRN Nausea And Vomiting Sodium Chloride 10 ml 04/23/19 10:00 04/24/19 10:04 Sodium Chloride Flush Syringe 10 Ml IV 10 ml BID [facility] Administration Sodium Chloride 10 ml 04/23/19 08:52 Sodium Chloride Flush Syringe 10 Ml IV PRN PRN LINE FLUSH
--- NOTE | 2019-04-24 11:31 | Ultrasound Report ---
ULTRASOUND RENAL INDICATION / CLINICAL INFORMATION: Hypertension, acute renal failure. COMPARISON: 06/07/2014 FINDINGS: RIGHT KIDNEY: Length = 11.6 cm. [normal > 9 cm] - Parenchymal Thickness = 1.7 cm. [normal > 1.5 cm] - Echogenicity: Normal. - Hydronephrosis: None. - Cyst or mass: No significant abnormality. - Stones: None seen. LEFT KIDNEY: Length = 13.7 cm. [normal > 9 cm] - Parenchymal Thickness = 0.9 cm. [normal > 1.5 cm] - Echogenicity: Normal. - Hydronephrosis: None. - Cyst or mass: No significant abnormality. - Stones: None seen. URINARY BLADDER: No significant abnormality. FREE FLUID: None. ADDITIONAL FINDINGS: Color Doppler interrogation is limited secondary to body habitus. IMPRESSION: Unremarkable renal ultrasound. No focal renal lesion or obstructive uropathy. Signer Name: Ortiz Serrano Jr, MD Signed: 04/24/2019 11:27 AM Workstation Name: [id number]
[2019-04-24] MEDS ORDERED: MAGNESIUM SULFATE 2 GM/50 ML BAG IV ONE (12:07)
--- NOTE | 2019-04-24 12:07 | Consultation ---
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 He describes the pain as constant, sharp and occurring across his upper chest. He also reports accompanying neck and shoulder pain as well as a persistent cough productive of yellowish sputum. On admission, he was extremely hypertensive, and admits to being noncompliant with his outpatient antihypertensive regimen. Patient reports that he has not taken blood pressure medication for at least 2 years and was diagnosed with hypertension approximately 8 years ago. CXR, EKG and troponins unremarkable. Past History Past Medical History: hypertension, other (BECCA, noncompliance, cardiomyopathy ) Review of Systems All systems: negative Past History Past Medical History: hypertension, other (BECCA, noncompliance, cardiomyopathy ) Social history: full code. denies: IV drug use Family history: hypertension Medications and Allergies Allergies Allergy/AdvReac Type Severity Reaction Status Date / Time sulfamethoxazole Allergy Hives Verified 04/23/19 08:55 [From Bactrim] trimethoprim [From Bactrim] Allergy Hives Verified 04/23/19 08:55 Home Medications Medication Instructions Recorded Confirmed Last Taken Type Coreg 25 mg PO BID #60 10/21/17 04/23/19 04/23/19 13:54 Rx Gabapentin [Neurontin] 100 mg PO Q8HR #90 capsule 10/21/17 04/23/19 04/23/19 13:54 Rx Hydralazine HCl 50 mg PO TID #90 tablet 10/21/17 04/23/19 04/23/19 13:54 Rx Lisinopril [Zestril TAB] 40 mg PO QDAY #30 tablet 10/21/17 04/23/19 04/23/19 13:55 Rx amLODIPine [Norvasc] 10 mg PO DAILY #30 tablet 10/21/17 04/23/19 04/23/19 13:55 Rx cloNIDine [Catapres] 0.1 mg PO Q12HR #60 tablet 10/21/17 04/23/19 04/23/19 13:55 Rx Active Meds: Active Medications Acetaminophen (Tylenol) 650 mg PO Q4H PRN PRN Reason: Pain MILD(1-3)/Fever >100.5/GONZALEZ Amlodipine Besylate (Norvasc) 10 mg PO DAILY [facility] Last Admin: 04/24/19 10:03 Dose: 10 mg Documented by: Carvedilol (Coreg) 25 mg PO BID [facility] Last Admin: 04/24/19 10:02 Dose: 25 mg Documented by: Clonidine HCl (Catapres) 0.1 mg PO Q12HR [facility] Last Admin: 04/24/19 10:02 Dose: 0.1 mg Documented by: Enoxaparin Sodium (Lovenox) 40 mg SUB-Q QDAY [facility] Last Admin: 04/24/19 10:01 Dose: 40 mg Documented by: Gabapentin (Neurontin) 100 mg PO Q8HR [facility] Last Admin: 04/24/19 06:17 Dose: 100 mg Documented by: Hydralazine HCl (Apresoline) 100 mg PO TID [facility] Sodium Chloride (Nacl 0.9% 1000 Ml) 1,000 mls @ 75 mls/hr IV DIRECT [facility] Last Admin: 04/24/19 10:05 Dose: 75 mls/hr Documented by: Morphine Sulfate (Morphine) 1 mg IV Q4H PRN PRN Reason: Pain , Severe (7-10) Ondansetron HCl (Zofran) 4 mg IV Q8H PRN PRN Reason: Nausea And Vomiting Sodium Chloride (Sodium Chloride Flush Syringe 10 Ml) 10 ml IV BID [facility] Last Admin: 04/24/19 10:04 Dose: 10 ml Documented by: Sodium Chloride (Sodium Chloride Flush Syringe 10 Ml) 10 ml IV PRN PRN PRN Reason: LINE FLUSH Exam - Vital Signs Vital signs: Vital Signs Temp Pulse Resp BP Pulse Ox 98.9 F 99 H 18 237/143 91 04/23/19 06:07 04/23/19 06:07 04/23/19 06:07 04/23/19 06:07 04/23/19 06:07 - Physical Exam Narrative exam: General appearance: Present: no acute distress, well-nourished - EENT Eyes: Present: PERRL ENT: hearing intact, clear oral mucosa - Neck Neck: Present: supple, normal ROM - Respiratory Respiratory effort: normal Respiratory: bilateral: CTA - Cardiovascular Heart Sounds: Present: S1 & S2. Absent: rub, click - Extremities Extremities: pulses symmetrical, No edema Peripheral Pulses: within normal limits - Abdominal General gastrointestinal: Present: soft, non-tender, non-distended, normal bowel sounds Male genitourinary: Present: normal - Integumentary Integumentary: Present: clear, warm, dry - Musculoskeletal Musculoskeletal: gait normal, strength equal bilaterally - Psychiatric Psychiatric: appropriate mood/affect, intact judgment & insight - Neurologic Neurologic: CNII-XII intact, moves all extremitie Results - Lab Results 04/24/19 06:35 04/24/19 06:35 Most recent lab results Calcium 8.4 mg/dL (8.4-10.2) 04/24/19 06:35 Assessment and Plan impression: * NIRALI * hypokalemia * rule out hyperaldosteronism * chest pain * htn Plan: * ivfs, gentle hydration * avoid nephrotoxins * check post void residual * replete k and mag prn * daily tyes * no marciano, arb or nsaids
--- NOTE | 2019-04-24 13:17 | Progress Note ---
Assessment and Plan AMI ruled out. Chest pain currently resolved. Lexiscan MPI stress test done 10/2017 was negative for ischemia, EF 44%. Echo done 10/2017 showed EF 50-55%. Echo reviewed - normal LVEF, mod to severe LVH, RA mod dilated, RV mod dilated, RVSP normal. Serum Cr elevated today. Nephrology has been consulted. Replete K+ PRN. Obtain serum Mg. Optimize BPs - hold ACEI/ARB in setting of renal insufficiency, increase hydralazine. The patient has been seen in conjunction with Dr. Saenz who agrees with the assessment and plan of care. - Patient Problems (1) Atypical chest pain Current Visit: Yes Status: Resolved (2) Uncontrolled hypertension Current Visit: Yes Status: Acute (3) Sleep apnea Current Visit: Yes Status: Chronic (4) Obesity Current Visit: Yes Status: Chronic (5) NIRALI (acute kidney injury) Current Visit: Yes Status: Acute (6) Hypokalemia Current Visit: Yes Status: Acute Subjective Date of service: 04/24/19 Principal diagnosis: cp Interval history: pt sleeping comfortably, easily awakened. no current complaints. in SR on telemetry, no acute events noted overnight. Objective Last Vital Signs Temp 97.3 F L 04/24/19 07:46 Pulse 68 04/24/19 10:03 Resp 21 04/24/19 08:25 BP 147/92 04/24/19 10:03 Pulse Ox 99 04/24/19 08:25 - Physical Examination General: No Apparent Distress HEENT: Positive: PERRL Neck: Positive: neck supple Cardiac: Positive: Reg Rate and Rhythm, S1/S2 Lungs: Positive: Decreased Breath Sounds Neuro: Positive: Grossly Intact Abdomen: Positive: Unremarkable Skin: Positive: Clear Musculoskeletal: Normal Range of Motion Extremities: Present: normal - Labs and Meds CBC 04/24/19 Range/Units 06:35 WBC 12.4 H (4.5-11.0) K/mm3 RBC 5.10 H (3.65-5.03) M/mm3 Hgb 14.7 (11.8-15.2) gm/dl Hct 44.7 (35.5-45.6) % Plt Count 170 (140-440) K/mm3 Lymph # 1.7 (1.2-5.4) K/mm3 [place]on # 0.8 (0.0-0.8) K/mm3 Eos # 0.0 (0.0-0.4) K/mm3 Baso # 0.0 (0.0-0.1) K/mm3 Comprehensive Metabolic Panel 04/24/19 Range/Units 06:35 Sodium 141 (137-145) mmol/L Potassium 3.3 L (3.6-5.0) mmol/L Chloride 99.3 (98-107) mmol/L Carbon Dioxide 33 H (22-30) mmol/L BUN 25 H (9-20) mg/dL Creatinine 2.3 H D (0.8-1.5) mg/dL Glucose 106 H (75-100) mg/dL Calcium 8.4 (8.4-10.2) mg/dL - Imaging and Cardiology EKG: report reviewed, image reviewed Stress echo: report reviewed (10/2017: negative for ischemia) Echo: report reviewed (10/2017: EF of 50 to 55 percent, moderate concentric LVH, mildly dilated LV chamber size and an akinetic apical lateral wall segment.) - Telemetry EKG Rhythm: Sinus Rhythm Chamber hypertrophy or enlargement: left ventricular hypertro
[2019-04-24] MEDS: hydrALAZINE 25 MG TAB PO SCH ×3 (14:49→22:03)
[2019-04-24] MEDS: ACETAMINOPHEN 325 MG TAB PO PRN (15:58)
[2019-04-24 20:34] LABS: Creatinine,Urine 465.1 mg/dL (0.1-20.0)
[2019-04-25] MEDS: ACETAMINOPHEN 325 MG TAB PO PRN ×2 (03:49→05:39)
[2019-04-25] MEDS: GABAPENTIN 100 MG CAP PO SCH ×2 (05:39→15:25)
[2019-04-25 06:08] LABS: Calcium 8.3 mg/dL (8.4-10.2)
[2019-04-25] MEDS ORDERED: oxyCODONE /ACETAMINOPHEN 5-325MG TAB PO NR (09:04)
[2019-04-25] MEDS: SODIUM CHLORIDE 0.9% 1000 ML 1,000 ML IV SCH (09:41)
[2019-04-25] MEDS: amLODIPine 10 MG TAB PO SCH (09:42)
[2019-04-25] MEDS: ENOXAPARIN 40 MG/0.4 ML INJ SUB-Q SCH (09:42)
[2019-04-25] MEDS: carvediloL 25 MG TAB PO SCH (09:43)
[2019-04-25] MEDS ORDERED: cloNIDine 0.1 MG TAB PO SCH (10:00)
[2019-04-25] MEDS ORDERED: DOXAZOSIN 4 MG TAB PO SCH (10:00)
--- NOTE | 2019-04-25 10:58 | Progress Note ---
Assessment and Plan Optimize BPs - hold ACEI/ARB in setting of renal insufficiency, increase clonidine dosage, d/c hydralazine and initiate cardura. Replete K+ PRN. The patient has been seen in conjunction with Dr. Saenz who agrees with the assessment and plan of care. - Patient Problems (1) Atypical chest pain Current Visit: Yes Status: Resolved (2) Uncontrolled hypertension Current Visit: Yes Status: Acute (3) Hypertensive heart disease Current Visit: Yes Status: Chronic (4) Sleep apnea Current Visit: Yes Status: Chronic (5) Obesity Current Visit: Yes Status: Chronic (6) NIRALI (acute kidney injury) Current Visit: Yes Status: Acute (7) Hypokalemia Current Visit: Yes Status: Acute Subjective Date of service: 04/25/19 Principal diagnosis: cp Interval history: pt sitting comfortably at bedside, no current complaints. in SR on telemetry, no acute events noted overnight. BPs remain elevated. Objective Last Vital Signs Temp 99.9 F H 04/25/19 07:38 Pulse 70 04/25/19 09:43 Resp 18 04/25/19 07:38 BP 140/91 04/25/19 09:43 Pulse Ox 96 04/25/19 06:11 - Physical Examination General: No Apparent Distress HEENT: Positive: PERRL Neck: Positive: neck supple Cardiac: Positive: Reg Rate and Rhythm, S1/S2 Lungs: Positive: Decreased Breath Sounds Neuro: Positive: Grossly Intact Abdomen: Positive: Unremarkable Skin: Positive: Clear Musculoskeletal: Normal Range of Motion Extremities: Present: normal - Labs and Meds Comprehensive Metabolic Panel 04/25/19 Range/Units 04:50 Sodium 138 (137-145) mmol/L Potassium 3.3 L (3.6-5.0) mmol/L Chloride 95.7 L (98-107) mmol/L Carbon Dioxide 34 H (22-30) mmol/L BUN 27 H (9-20) mg/dL Creatinine 1.8 H (0.8-1.5) mg/dL Glucose 119 H (75-100) mg/dL Calcium 8.3 L (8.4-10.2) mg/dL - Imaging and Cardiology EKG: report reviewed, image reviewed Stress echo: report reviewed (10/2017: negative for ischemia) Echo: report reviewed (04/2019: normal LVEF, mod to severe LVH, RA mod dilated, RV mod dilated, RVSP normal. 10/2017: EF of 50 to 55 percent, moderate concentric LVH, mildly dilated LV chamber size and an akinetic apical lateral wall segment.) - Telemetry EKG Rhythm: Sinus Rhythm Chamber hypertrophy or enlargement: left ventricular hypertro
[2019-04-25] MEDS ORDERED: POTASSIUM CHLORIDE ER 20 MEQ TAB PO NR (11:00)
--- NOTE | 2019-04-25 11:20 | Cat Scan Report ---
CT HEAD WITHOUT CONTRAST INDICATION : Severe headache. TECHNIQUE: Axial imaging performed from the skull apex through the skull base without the use of con trast. All CT scans at this location are performed using CT dose reduction for ALARA by means of aut omated exposure control. COMPARISON: None FINDINGS: Parenchyma: No abnormal density. No mass, hemorrhage or edema. Ventricles: Ventricles are normal in size and appear symmetric. Soft tissues: Soft tissues including the orbits appear normal. Bones: No acute osseous abnormality. Sinuses: Sinuses and mastoid air cells are clear. Additional findings: Ectasia and tortuosity of the intracranial arteries. The basilar artery is parti cularly tortuous and ectatic. IMPRESSION: No acute abnormality. Consider CTA head to evaluate the intracranial arteries and to excl ude aneurysm. Signer Name: Jude Robledo MD Signed: 04/25/2019 11:15 AM Workstation Name: [id number]
--- NOTE | 2019-04-25 12:30 | Progress Note ---
Assessment and Plan impression: * NIRALI * hypokalemia * rule out hyperaldosteronism * chest pain * htn Plan: * ivfs, gentle hydration * avoid nephrotoxins * normal post void residual * replete k and mag prn * cr is better today * daily tyes * no marciano, arb or nsaids * dc home once k is corrected Subjective Date of service: 04/25/19 Principal diagnosis: cp Interval history: resting well in bed today Objective - Exam Narrative Exam: General appearance: Present: no acute distress, well-nourished - EENT Eyes: Present: PERRL ENT: hearing intact, clear oral mucosa - Neck Neck: Present: supple, normal ROM - Respiratory Respiratory effort: normal Respiratory: bilateral: CTA - Cardiovascular Heart Sounds: Present: S1 & S2. Absent: rub, click - Extremities Extremities: pulses symmetrical, No edema Peripheral Pulses: within normal limits - Abdominal General gastrointestinal: Present: soft, non-tender, non-distended, normal bowel sounds Male genitourinary: Present: normal - Integumentary Integumentary: Present: clear, warm, dry - Musculoskeletal Musculoskeletal: gait normal, strength equal bilaterally - Psychiatric Psychiatric: appropriate mood/affect, intact judgment & insight - Neurologic Neurologic: CNII-XII intact, moves all extremitie - Vital Signs Vital signs: Vital Signs - 12hr 04/25/19 04/25/19 04/25/19 00:57 01:05 03:49 Temperature Pulse Rate 77 Pulse Rate [ 90 Apical] Respiratory 20 18 Rate Blood Pressure O2 Sat by Pulse 97 Oximetry 04/25/19 04/25/19 04/25/19 05:30 05:31 05:39 Temperature 103.0 F H Pulse Rate 79 Pulse Rate [ Apical] Respiratory 20 18 Rate Blood Pressure 178/100 O2 Sat by Pulse 96 Oximetry 04/25/19 04/25/19 04/25/19 06:11 07:38 09:42 Temperature 99.9 F H Pulse Rate 70 Pulse Rate [ Apical] Respiratory 18 Rate Blood Pressure 140/91 140/91 O2 Sat by Pulse 96 Oximetry 04/25/19 04/25/19 09:43 11:33 Temperature 97.9 F Pulse Rate 70 71 Pulse Rate [ Apical] Respiratory 18 Rate Blood Pressure 140/91 147/87 O2 Sat by Pulse 93 Oximetry - Lab 04/24/19 06:35 04/25/19 04:50 Most recent lab results Calcium 8.3 mg/dL (8.4-10.2) L 04/25/19 04:50 Magnesium 1.90 mg/dL (1.7-2.3) 04/24/19 12:20 Urine Creatinine 465.1 mg/dL (0.1-20.0) H 04/24/19 17:50 Urine Sodium 10 mmol/L 04/24/19 17:50 Medications & Allergies - Medications Allergies/Adverse Reactions: Allergies sulfamethoxazole [From Bactrim] Allergy (Verified 04/23/19 08:55) Hives trimethoprim [From Bactrim] Allergy (Verified 04/23/19 08:55) Hives Home Medications: Home Medications Medication Instructions Recorded Confirmed Last Taken Type Coreg 25 mg PO BID #60 10/21/17 04/23/19 04/23/19 13:54 Rx Gabapentin [Neurontin] 100 mg PO Q8HR #90 capsule 10/21/17 04/23/19 04/23/19 13:54 Rx Hydralazine HCl 50 mg PO TID #90 tablet 10/21/17 04/23/19 04/23/19 13:54 Rx Lisinopril [Zestril TAB] 40 mg PO QDAY #30 tablet 10/21/17 04/23/19 04/23/19 13:55 Rx amLODIPine [Norvasc] 10 mg PO DAILY #30 tablet 10/21/17 04/23/19 04/23/19 13:55 Rx cloNIDine [Catapres] 0.1 mg PO Q12HR #60 tablet 10/21/17 04/23/19 04/23/19 13:55 Rx Active Medications: Generic Name Dose Route Start Last Admin Trade Name Freq PRN Reason Stop Dose Admin Acetaminophen 650 mg 04/23/19 08:52 04/25/19 05:39 Tylenol PO 650 mg Q4H PRN Administration Pain MILD(1-3)/Fever >100.5/GONZALEZ Amlodipine Besylate 10 mg 04/23/19 10:00 04/25/19 09:42 Norvasc PO 10 mg DAILY MELISSA Administration Carvedilol 25 mg 04/23/19 10:00 04/25/19 09:43 Coreg PO 25 mg BID MELISSA Administration Clonidine HCl 0.2 mg 04/25/19 10:00 04/25/19 09:43 Catapres PO 0.2 mg Q12HR MELISSA Administration Doxazosin Mesylate 8 mg 04/25/19 10:00 04/25/19 09:42 Cardura PO 8 mg QDAY MELISSA Administration Enoxaparin Sodium 40 mg 04/23/19 10:00 04/25/19 09:42 Lovenox SUB-Q 40 mg QDAY MELISSA Administration Gabapentin 100 mg 04/23/19 09:00 04/25/19 05:39 Neurontin PO 100 mg Q8HR MELISSA Administration Sodium Chloride 1,000 mls @ 75 mls/hr 04/24/19 08:00 04/25/19 09:41 Nacl 0.9% 1000 Ml IV 75 mls/hr DIRECT MELISSA Administration Morphine Sulfate 1 mg 04/23/19 18:00 Morphine IV Q4H PRN Pain , Severe (7-10) Ondansetron HCl 4 mg 04/23/19 08:52 Zofran IV Q8H PRN Nausea And Vomiting Oxycodone/Acetaminophen 1 tab 04/25/19 18:00 Percocet 5/325 PO Q6HR PRN Pain, Moderate (4-6) Potassium Chloride 40 meq 04/25/19 11:00 04/25/19 11:55 K-Dur PO 04/25/19 16:00 40 meq ONCE NR Administration Sodium Chloride 10 ml 04/23/19 10:00 04/25/19 11:55 Sodium Chloride Flush Syringe 10 Ml IV 10 ml BID MELISSA Administration Sodium Chloride 10 ml 04/23/19 08:52 Sodium Chloride Flush Syringe 10 Ml IV PRN PRN LINE FLUSH
[2019-04-25] MEDS: hydrALAZINE 25 MG TAB PO SCH (12:38)
--- NOTE | 2019-04-25 12:47 | Discharge Summary ---
Providers - Providers Date of Admission: 04/23/19 07:40 Date of discharge: 04/25/19 Attending physician: PUMA VALENTINE MD 04/23/19 08:52 Consult to Physician [CONS] Routine Comment: Consulting Provider: TYESHA GAMBINO Physician Instructions: Reason For Exam: cp 04/24/19 07:59 Consult to Physician [CONS] Routine Comment: Consulting Provider: ANI SÁNCHEZ Physician Instructions: Reason For Exam: arf [facility] Reason for admission: Chest pain, hypertensive urgency Condition: Stable Pertinent studies: Echo renal u/s Hospital course: 34 y/o male with past medical history of hypertension, BECCA, tobacco use, cardiomyopathy and medical noncompliance who 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 He describes the pain as constant, sharp and occurring across his upper chest. He also reports accompanying neck and shoulder pain as well as a persistent cough productive of yellowish sputum. On admission, he was extremely hypertensive, and admits to being noncompliant with his outpatient antihypertensive regimen. Patient reports that he has not taken blood pressure medication for at least 2 years and was diagnosed with hypertension approximately 8 years ago. CXR, EKG and troponins unremarkable. Acute renal failure;may be secondary to vasomotor nephropathy/dehydration. Patient was treated with IV fluids and creatinine was trending down. Nephrology was consulted and cleared him for discharge and will follow in the office. Hypertensive urgency; patient was off his blood pressure medications for the last 2 years. Patient was started with clonidine, Cardura, Norvasc and Coreg. Blood pressure was controlled at the time of discharge. We didn't give him BENNY/ARBs because of renal failure. Chest pain. Patient with negative stress test October 2017. CXR, EKG and troponins unremarkable. An exercise stress test in 2018 was negative for ischemia. Cardiology evaluated the patient and recommended no cardiac workup at this time, optimize his blood pressure medications Hypertensive cardiomyopathy. Echocardiogram October 2017 revealed moderate concentric left ventricular hypertrophy with EF of 50-55%. Left ventricular chamber size mildly dilated. 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 No workup needed optimize blood pressure medication Morbid obesity; Patient was counseled counseled on diet modification and exercise. BECCA/OHS; Patient likely has sleep apnea and will need outpatient sleep study. Medical noncompliance; Patient has been counseled on importance of medications. Tobacco use. Patient was counseled on smoking cessation. Patient's potassium this morning was 3.3 and repleted with 40 mEq of potassium. And given a script for few days. Patient was hemodynamically stable last time of discharge. Appropriate medication scripts were given at the time of discharge. Patient's questions and concerns were addressed as a bedside. Disposition: DC-01 TO HOME OR SELFCARE Time spent for discharge: 32 minutes - Discharge Diagnoses (1) Morbid obesity with BMI of 45.0-49.9, adult Status: Acute (2) NIRALI (acute kidney injury) Status: Acute (3) Chest pain Status: Acute Qualifiers: (4) Uncontrolled hypertension Status: Acute (5) Cardiomyopathy Status: Chronic (6) Hypertensive heart disease Status: Chronic (7) Obesity Status: Chronic (8) Sleep apnea Status: Chronic Core Measure Documentation - Palliative Care Palliative Care/ Comfort Measures: Not Applicable - Core Measures Any of the following diagnoses?: none Exam - Physical Exam Narrative exam: Not in cardiopulmonary distress. The patient is morbidly obese. Vital signs as documented. Head exam is unremarkable. No scleral icterus . Neck is without jugular venous distension, thyromegaly, or carotid bruits. Lungs are clear to auscultation. Cardiac exam reveals regular rate and Rhythm. Abdominal exam reveals normal bowel sounds. Extremities are nonedematous and both femoral and pedal pulses are normal. 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 No focal weakness. - Constitutional Vitals: Temp Pulse Resp BP Pulse Ox 97.9 F 71 18 147/87 93 04/25/19 11:33 04/25/19 11:33 04/25/19 11:33 04/25/19 11:33 04/25/19 11:33 Plan Activity: no restrictions Weight Bearing Status: Full Weight Bearing Diet: low cholesterol, low salt Follow up with: GABRIEL WATKINS MD [Primary Care Provider] - 7 Days Prescriptions: Doxazosin [Cardura] 8 mg PO QDAY #60 tablet cloNIDine [Catapres] 0.2 mg PO Q12HR #60 tablet Coreg 25 mg PO BID #60 Potassium Chloride [K-Dur] 20 meq PO ONCE #5 tablet Gabapentin [Neurontin] 100 mg PO Q8HR #90 capsule amLODIPine [Norvasc] 10 mg PO DAILY #30 tablet
--- NOTE | 2019-04-25 13:19 | Ultrasound Report ---
Bladder Ultrasound HISTORY: renal failure. TECHNIQUE: Grayscale and color Doppler imaging performed. COMPARISON: CT abdomen/pelvis from 10/19/2017 FINDINGS: The prevoid bladder volume is 328 mL. The bladder is collapsed after voiding with no signif icant residual volume. No gross bladder wall mass or thickening identified. IMPRESSION: No significant post void residual volume. Signer Name: Darren Palmer MD Signed: 04/25/2019 1:15 PM Workstation Name: [id number]
[2019-04-25 16:28] VITALS: BP 104/57
[2019-04-25] MEDS ORDERED: oxyCODONE /ACETAMINOPHEN 5-325MG TAB PO PRN (18:00)
== END 2019-04-25 19:56 | disposition home or self-care (01) | DRG 640 ==
LOC: ED 05:58 → 4A 07:40
PROVIDERS: ADMIT Hospitalist; ATTEND Internal Medicine
DX: E86.0 Dehydration (principal); N17.0 Acute kidney failure with tubular necrosis; I43 Cardiomyopathy in diseases classified elsewhere; E66.2 Morbid (severe) obesity with alveolar hypoventilation; Z68.42 Body mass index [BMI] 45.0-49.9, adult; I16.0 Hypertensive urgency; R07.9 Chest pain, unspecified; E87.6 Hypokalemia; F17.210 Nicotine dependence, cigarettes, uncomplicated; I11.9 Hypertensive heart disease without heart failure; Z79.899 Other long term (current) drug therapy; Z71.3 Dietary counseling and surveillance; Z91.19 Patient's noncompliance with other medical treatment and regimen; Z71.6 Tobacco abuse counseling
CPT/HCPCS: 36415; 70450; 71045; 76770; 76857; 80048; 82140; 82570; 83735; 84300; 84484; 85025; 87040; 87400; 89050; 93005; 93010; 93306; 94644; 94760; 96374; G0378; J1650; J2270; J2405; J3010; J7030

== ENCOUNTER 2020-08-13 17:23 | Emergency (ER) | payer SELFPAY ==
--- NOTE | 2020-08-13 17:37 | Event Note ---
ED Screening Note Date of service: 08/13/20 Time: 17:36 ED Screening Note: 35-year-old male with a history of hypertension presents to ED with lower abdominal pain/not showing bruising that appeared to 3 days ago. Patient also complaining of left leg swelling and redness with shortness of breath. Left leg tender to palpation, swollen, erythematous Lower abdomen shows 2 ecchymoses This initial assessment/diagnostic orders/clinical plan/treatment(s) is/are subject to change based on patients health status, clinical progression and re- assessment by fellow clinical providers in the ED. Further treatment and workup at subsequent clinical providers discretion. Patient/guardian urged not to elope from the ED as their condition may be serious if not clinically assessed and managed. Initial orders include: Labs, PT PTT Doppler studies ordered.
[2020-08-13 18:26] LABS: Basophils % (Auto) 0.3 % (0.0-1.8); Eosinophils # (Auto) 0.1 K/mm3 (0.0-0.4); Eosinophils % (Auto) 1.4 % (0.0-4.3); Hematocrit 46.9 % (35.5-45.6); Hemoglobin 15.7 gm/dl (11.8-15.2); Lymphocytes # (Auto) 1.2 K/mm3 (1.2-5.4); Lymphocytes % (Auto) 11.4 % (13.4-35.0); Mean Corpuscular HGB Conc 33 % (32-34); Mean Corpuscular Volume 88 fl (84-94); Monocytes # (Auto) 0.8 K/mm3 (0.0-0.8); Monocytes % (Auto) 8.2 % (0.0-7.3); Platelet Count 179 K/mm3 (140-440); Red Blood Count 5.32 M/mm3 (3.65-5.03); Red Cell Distribution Width 15.3 % (13.2-15.2)
--- NOTE | 2020-08-13 18:31 | XRay Report ---
ABDOMEN 1 VIEW(S) INDICATION / CLINICAL INFORMATION: pain. COMPARISON: None available. FINDINGS: TUBES / LINES: None. BOWEL GAS PATTERN: No significant abnormality. ADDITIONAL FINDINGS: No significant additional findings. IMPRESSION: No acute abnormality. Signer Name: Arnav Ware MD Signed: 08/13/2020 6:27 PM Workstation Name: [id number]
[2020-08-13 18:36] LABS: INR 1.08 (0.87-1.13)
[2020-08-13 18:37] LABS: Partial Thromboplastin Time 33.2 Sec. (24.2-36.6)
[2020-08-13 18:43] LABS: Alanine Aminotransferase 16 units/L (7-56); Albumin 3.8 g/dL (3.9-5); BUN/Creatinine Ratio 15; Blood Urea Nitrogen 15 mg/dL (9-20); Calcium 8.8 mg/dL (8.4-10.2); Hemolysis Index 13
[2020-08-13] MEDS ORDERED: cloNIDine 0.1 MG TAB PO ONE ×2 (21:20→21:31)
--- NOTE | 2020-08-13 21:24 | Emergency Department Report ---
ED General Adult HPI - General Chief complaint: Extremity Problem,Nontraumatic Stated complaint: BLOOD CLOGS/LEG SWOLLEN/SOB Time Seen by Provider: 08/13/20 21:13 Source: patient Mode of arrival: Ambulatory Limitations: No Limitations - History of Present Illness Initial comments: Patient is a 35-year-old male with history of hypertension. Patient presented to the ER complaining of bruises to the lower abdomen and left leg. Patient stated that he felt from his bed 4 days ago. Patient denied any abdominal pain however stated that there is 2 bruises one on the right side on the left side he noticed the next day. Patient is not on any blood thinner medication. Patient denied any nausea or vomiting. Patient denied any other injury or trauma. Patient found to have a blood pressure of 226/126. Patient stated that he is compliant with his medication. - Related Data Previous Rx's Medication Instructions Recorded Last Taken Type Coreg 25 mg PO BID #60 04/25/19 Unknown Rx Doxazosin [Cardura] 8 mg PO QDAY #60 tablet 04/25/19 Unknown Rx Gabapentin 100 mg PO Q8HR #90 capsule 04/25/19 Unknown Rx Potassium Chloride [K-Dur] 20 meq PO ONCE #5 tablet 04/25/19 Unknown Rx amLODIPine 10 mg PO DAILY #30 tablet 04/25/19 Unknown Rx cloNIDine [Catapres] 0.2 mg PO Q12HR #60 tablet 04/25/19 Unknown Rx hydrALAZINE [Apresoline TAB] 25 mg PO Q8HR #30 tab 08/14/20 Unknown Rx Allergies Allergy/AdvReac Type Severity Reaction Status Date / Time sulfamethoxazole Allergy Hives Verified 04/23/19 08:55 [From Bactrim] trimethoprim [From Bactrim] Allergy Hives Verified 04/23/19 08:55 ED Review of Systems ROS: Stated complaint: BLOOD CLOGS/LEG SWOLLEN/SOB Other details as noted in HPI Comment: All other systems reviewed and negative Constitutional: denies: chills, fever Respiratory: denies: cough, shortness of breath, SOB with exertion, SOB at rest Cardiovascular: denies: chest pain, palpitations Gastrointestinal: denies: abdominal pain, nausea, vomiting Musculoskeletal: denies: back pain Neurological: denies: headache, weakness, numbness, paresthesias, confusion, abnormal gait ED Past Medical Hx - Past Medical History Hx Hypertension: Yes Hx Congestive Heart Failure: No Hx Diabetes: No Hx Asthma: No Hx COPD: No - Social History Smoking Status: Current Some Day Smoker - Medications Home Medications: Home Medications Medication Instructions Recorded Confirmed Last Taken Type Coreg 25 mg PO BID #60 04/25/19 Unknown Rx Doxazosin [Cardura] 8 mg PO QDAY #60 tablet 04/25/19 Unknown Rx Gabapentin 100 mg PO Q8HR #90 capsule 04/25/19 Unknown Rx Potassium Chloride [K-Dur] 20 meq PO ONCE #5 tablet 04/25/19 Unknown Rx amLODIPine 10 mg PO DAILY #30 tablet 04/25/19 Unknown Rx cloNIDine [Catapres] 0.2 mg PO Q12HR #60 tablet 04/25/19 Unknown Rx hydrALAZINE [Apresoline TAB] 25 mg PO Q8HR #30 tab 08/14/20 Unknown Rx ED Physical Exam - General Limitations: No Limitations General appearance: alert, in no apparent distress - Head Head exam: Present: atraumatic, normocephalic, normal inspection - Eye Eye exam: Present: normal appearance, PERRL - ENT ENT exam: Present: normal exam, normal orophraynx, mucous membranes moist - Neck Neck exam: Present: normal inspection, full ROM. Absent: tenderness, men ingismus - Respiratory Respiratory exam: Present: normal lung sounds bilaterally - Cardiovascular Cardiovascular Exam: Present: regular rate, normal rhythm, normal heart sounds - GI/Abdominal GI/Abdominal exam: Present: soft, normal bowel sounds, other (Ecchymosis to the lower abdomen.). Absent: distended, tenderness, guarding, rebound, rigid, organomegaly, mass, bruit, pulsatile mass, hernia - Extremities Exam Extremities exam: Present: normal inspection, full ROM, normal capillary refill - Back Exam Back exam: Present: normal inspection, full ROM. Absent: CVA tenderness (R), CVA tenderness (L) - Neurological Exam Neurological exam: Present: alert, oriented X3, CN II-XII intact - Psychiatric Psychiatric exam: Present: normal mood - Skin Skin exam: Present: warm, intact, normal color ED Course Vital Signs 08/13/20 08/13/20 08/13/20 17:34 21:28 21:36 Temperature 98.3 F 98.0 F Pulse Rate 77 74 74 Respiratory 20 18 Rate Blood Pressure 185/118 Blood Pressure 226/126 185/118 [Right] O2 Sat by Pulse 96 91 Oximetry 08/13/20 08/14/20 08/14/20 22:35 00:21 00:23 Temperature Pulse Rate 65 67 67 Respiratory 18 18 Rate Blood Pressure 186/134 Blood Pressure 182/107 186/134 [Right] O2 Sat by Pulse 100 97 Oximetry 08/14/20 08/14/20 01:17 01:35 Temperature Pulse Rate 64 62 Respiratory 16 18 Rate Blood Pressure Blood Pressure 179/111 159/114 [Right] O2 Sat by Pulse 97 96 Oximetry ED Medical Decision Making - Lab Data Result diagrams: 08/13/20 18:07 08/13/20 18:07 - EKG Data -: EKG Interpreted by Ne EKG shows normal: sinus rhythm Rate: normal - EKG Data Interpretation: no acute changes - Radiology Data Radiology results: report reviewed - Medical Decision Making Patient is a 35-year-old male with history of hypertension. Patient presented to the ER complaining of bruises to the lower abdomen and left leg. Patient stated that he felt from his bed 4 days ago. Patient denied any abdominal pain however stated that there is 2 bruises one on the right side on the left side he noticed the next day. Patient is not on any blood thinner medication. Patient denied any nausea or vomiting. Patient denied any other injury or trauma. Patient found to have a blood pressure of 226/126. Patient stated that he is compliant with his medication. EKG is unremarkable. Chest x-ray is negative for acute finding. Patient received clonidine 0.3 mg with improvement in his blood pressure. Again patient denying any chest pain, shortness of breath, weakness numbness or tingling sensation. No bowel or bladder incontinence. Patient advised to be compliant with his medication and advised to follow-up with his primary doctor in the next 2 to 3 days and to return to the ER if he develop any new symptoms. Critical care attestation.: If time is entered above; I have spent that time in minutes in the direct care of this critically ill patient, excluding procedure time. ED Disposition Clinical Impression: Hypertensive urgency, Abdominal contusion Disposition: -01 TO HOME OR SELFCARE Is pt being admited?: No Condition: Stable Instructions: Contusion, Hypertension, Adult, [id number] Prescriptions: hydrALAZINE [Apresoline TAB] 25 mg PO Q8HR #30 tab Referrals: PRIMARY CARE, [Primary Care Provider] - 3-5 Days
--- NOTE | 2020-08-13 22:29 | XRay Report ---
CHEST 1 VIEW 08/13/2020 9:14 PM INDICATION / CLINICAL INFORMATION: Shortness of breath. COMPARISON: 04/23/2019. FINDINGS: SUPPORT DEVICES: None. HEART / MEDIASTINUM: Stable prominent cardiac silhouette. LUNGS / PLEURA: No significant pulmonary or pleural abnormality. No pneumothorax. ADDITIONAL FINDINGS: No significant additional findings. IMPRESSION: No acute cardiopulmonary abnormality. Prominence of the cardiomediastinal silhouette is stable from 2 019. Signer Name: Eran Pompa MD Signed: 08/13/2020 10:25 PM Workstation Name: [id number]
[2020-08-14] MEDS ORDERED: cloNIDine 0.1 MG TAB PO ONE (00:21)
[2020-08-14 01:41] VITALS: BP 159/114
== END 2020-08-14 01:35 | disposition home or self-care (01) ==
LOC: ED 17:23
DX: I16.0 Hypertensive urgency (principal); R10.9 Unspecified abdominal pain; F17.200 Nicotine dependence, unspecified, uncomplicated; Z79.899 Other long term (current) drug therapy
CPT/HCPCS: 36415; 71045; 74019; 80053; 83880; 84484; 85025; 85610; 85730

== ENCOUNTER 2020-08-14 13:15 | Outpatient (CLI) | payer OTHER ==
--- NOTE | 2020-08-14 14:33 | Vascular Lab Report ---
DUPLEX DOPPLER LOWER EXTREMITY VEINS, LEFT INDICATION: LT.LEG PAIN/SWELLING. TECHNIQUE: Duplex doppler imaging was performed through the veins of the left lower extremity using venous compr ession and other maneuvers. COMPARISON: No relevant prior imaging study available. FINDINGS: Left Common femoral vein: Negative. Left Superficial femoral vein: Negative. Left Popliteal vein: Negative. Left Calf veins: Negative. Additional findings: None.. IMPRESSION: 1. No sonographic evidence for DVT in the left lower extremity. Signer Name: Darren Palmer MD Signed: 08/14/2020 2:28 PM Workstation Name: [id number]
== END 2020-08-14 13:16 | disposition home or self-care (01) ==
LOC: VAS 13:15
DX: M79.89 Other specified soft tissue disorders (principal); M79.605 Pain in left leg